=== PATIENT | female | born 2000 | race Hispanic/Latino ===

== ENCOUNTER 2020-05-17 14:02 | Outpatient (CLI) | payer BC, OTHER, SELFPAY ==
[2020-05-17 14:48] LABS: Basophils Percent Auto 0.3 % (0.2-1.2); Eosinophils Absolute Auto 0.1 K/mm3 (0-0.3); Eosinophils Percent Auto 0.7 % (0-4.4); Hematocrit 38.2 % (37.0-47.0); Hemoglobin 13.4 g/dL (12.0-15.0); Immature Granulocyte Absolute 0.02 K/mm3 (0.00-0.031); Immature Granulocyte Percent A 0.3 % (0-0.5); Lymphocytes Absolute Auto 1.39 K/mm3 (0.9-3.2); Lymphocytes Percent Auto 20.1 % (18.3-44.2); Mean Corpuscular HGB Conc 35.1 g/dl (32-36); Mean Corpuscular Hemoglobin 29.3 pg (26-34); Mean Corpuscular Volume 83.6 fl (80-100); Mean Platelet Volume 10.9 fl (7.4-10.4); Monocytes Absolute Auto 0.4 K/mm3 (0.1-0.6); Monocytes Percent Auto 5.9 % (2.6-8.5); Neutrophils Percent Auto 72.7 % (45.5-73.1); Platelet Count Result 214 k/mm3 (150-375); Red Blood Count 4.57 M/mm3 (4.2-5.4); Red Cell Distribution Width 12.3 % (11.5-14.5); White Blood Count 6.9 K/mm3 (4.5-10.0)
[2020-05-17 14:59] LABS: Alanine Aminotransferase 11 U/L (4-35); Albumin Level 4.2 g/dL (3.5-5.1); Alkaline Phosphatase 68 U/L (38-126); Anion Gap 9 mmol/L (8-16); Aspartate Amino Transferase 21 U/L (14-36); Bilirubin,Total 0.4 mg/dL (0.2-1.3); Blood Urea Nitrogen 7 mg/dL (7-17); Calcium 8.8 mg/dL (8.4-10.2); Carbon Dioxide 23 mmol/L (22-30); Chloride 103 mmol/L (98-107); Estimated Glomerular Filt Rate > 60; Glucose 109 mg/dL (65-105); Potassium 3.3 mmol/L (3.4-5.0); Sodium 135 mmol/L (137-145); Uric Acid 2.3 mg/dL (2.5-7.5)
[2020-05-17 15:40] LABS: HIV 1/2 Ab P24 Ag Result Negative (Negative)
[2020-05-17 16:14] LABS: Hemoglobin A1C 5.1 % (<5.7)
[2020-05-17 17:00] LABS: Hepatitis B Surface Antigen Negative (Negative); Rubella IgG Antibody 20.4 IU/ML
[2020-05-17 17:05] LABS: Hepatitis C Virus Antibody Negative (Negative)
[2020-05-19 10:38] LABS: Rapid Plasma Reagin Non-Reactive (NonReactive)
[2020-05-19 12:26] LABS: Lead, Blood <1 mcg/dL (<5)
[2020-05-24 15:45] LABS: Collection Sample Venous
== END 2020-05-17 14:03 | disposition home or self-care (01) ==
LOC: ANHLAB 14:05
PROVIDERS: Family Provider Family Medicine; PCP Family Medicine; Visit Provider Obstetrics & Gynecology
DX: Z34.90 Encounter for supervision of normal pregnancy, unspecified, unspecified trimester (principal); Z3A.00 Weeks of gestation of pregnancy not specified; Z51.81 Encounter for therapeutic drug level monitoring; Z79.899 Other long term (current) drug therapy
CPT/HCPCS: 36415; 80053; 83036; 83655; 84550; 85025; 86592; 86703; 86762; 86803; 86850; 86900; 86901; 87340; G0432

== ENCOUNTER 2020-08-31 17:04 | Observation (INO) | payer BC, OTHER, SELFPAY ==
--- NOTE | 2020-08-31 17:04 | OBADM ---
This patient, Karin Rajput, admitted to the OB room OB Post 116 for observation. Patient/family oriented to hospital policies and general routines including ID bracelet, bed and alarms, visiting hours, pain management, procedures, bathroom and other care routines, personal items, smoking policy, room service/diet, and visiting hours. Patient/Family are encouraged to report perceived risks to care and to ask questions if they do not understand what they are told or what they should do.
[2020-08-31 17:21] VITALS: BP 124/86; PULSE 109
[2020-08-31 17:31] VITALS: TEMP 36.8
[2020-08-31 17:35] VITALS: BMI 18.9
[2020-08-31 17:38] LABS: Add Urine Microscopic? YES; Appearance Urine Cloudy (Clear); Bacteria Urine Trace /hpf; Bilirubin Urine Negative (Negative); Blood Urine Negative (Negative); Color Urine Yellow (Yellow); Glucose Urine UA 1+ mg/dL (Negative); Ketones Urine Negative (Negative); Leukocyte Esterase Ur Negative LEU/UL (NEGATIVE); Mucus Urine Few /lpf; Nitrate Urine Negative (Negative); Protein Urine 1+ mg/dL (Negative); RBC Urine 0-2 /hpf (0-2); Squamous Epithelial Cell Urine Many /hpf (Few); WBC Urine 0-3 /hpf (0-3)
--- NOTE | 2020-09-03 07:39 | PM.OBTRLD ---
OB - Triage/Final Diagnosis Visit Information Comments/Additional reasons for admission: I have assessed the risk for this patient, Karin Rajput, and determined that she would benefit from observation care. Evaluation Laboratory results: Laboratory Tests 08/31/20 17:26 Urine Color Yellow Urine Appearance Cloudy H Urine pH 6.0 Ur Specific [place] 1.030 Urine Protein 1+ H Urine Glucose (UA) 1+ H Urine Ketones Negative Ur Blood (Man) Negative Urine Nitrate Negative Urine Bilirubin Negative Urine Urobilinogen 2.0 H Ur Leukocyte Esterase Negative Urine RBC 0-2 Urine WBC 0-3 Ur Squamous Epith Cells Many H Urine Bacteria Trace Urine Mucus Few H Final Diagnosis (1) False labor: Code(s): O47.9 - False labor, unspecified Status: Acute
== END 2020-08-31 18:13 | disposition home or self-care (01) ==
PROVIDERS: Admitting Provider Obstetrics & Gynecology; PCP Family Medicine; Visit Provider Obstetrics & Gynecology
DX: O47.02 False labor before 37 completed weeks of gestation, second trimester (principal); Z3A.27 27 weeks gestation of pregnancy
CPT/HCPCS: 81001; 87086; G0378; G0379

== ENCOUNTER 2020-09-06 12:35 | Outpatient (CLI) | payer BC, OTHER, SELFPAY ==
--- NOTE | 2020-09-06 | ECHO_ITS ---
Patient Info Name: Karin Rajput Age: 20 years : 2000 Gender: Female Ht: 68 in Wt: 127 lbs BSA: 1.65 m2 HR: 76 bpm BP: 118 / 96 mmHg Heart Rhythm: Sinus Rhythm Technical Quality: Good Exam Date: 09/06/2020 1:07 PM Exam Location: [facility]monary Patient Status: Outpatient Admit Date: 09/06/2020 Staff Ordering Physician: John Pollock MD Hand Developer: Casey Varghese RDCS, RT Attending Provider: John Pollock MD Referring Physician: Phill LANE; Exam Type: CA echo doppler color flow Study Info Indications Z13.6 - Encounter for screening for cardiovascular disorders Complete two-dimensional, color flow and Doppler transthoracic echocardiogram is performed. Strain analysis performed. Summary 1. Complete two-dimensional, color flow and Doppler transthoracic echocardiogram is performed. 2. Left ventricular systolic function is normal, estimated at 60-65%. 3. There is no increased left ventricular wall thickness. 4. The left ventricular diastolic function is normal. 5. There is no aortic valve regurgitation. 6. There is trace mitral valve regurgitation. 7. There is no tricuspid valve regurgitation. 8. Unable to estimate PA systolic pressure due to poor spectral resolution of tricuspid regurgitant jet velocity. 9. There is trace pulmonic regurgitation. Left Ventricle Left ventricular chamber dimension is normal. Left ventricular systolic function is normal, estimated at 60-65%. There is no increased left ventricular wall thickness. The left ventricular diastolic function is normal. Global longitudinal strain is normal at -19 %. Right Ventricle Right ventricular chamber dimension is normal. Right ventricular systolic function is normal. Left Atria Left atrial chamber dimension is normal. Right Atria Right atrial chamber dimension is normal. Aortic Valve The aortic valve is trileaflet. There is no aortic valve stenosis. There is no aortic valve regurgitation. Pulmonic Valve The pulmonic valve is normal. There is trace pulmonic regurgitation. Mitral Valve The mitral valve has normal leaflets. There is trace mitral valve regurgitation. Tricuspid Valve The tricuspid valve leaflets are normal. There is no tricuspid valve regurgitation. Unable to estimate PA systolic pressure due to poor spectral resolution of tricuspid regurgitant jet velocity. Pericardium/Pleural The pericardium appears normal. There is no pericardial effusion. Inferior Vena Cava Normal inferior vena cava with >50% collapse upon inspiration consistent with normal right atrial pressure, 5 mmHg. Aorta The aortic root size at the sinus of Valsalva is normal. Left Ventricular Outflow Tract Name Value Normal LVOT 2D LVOT Diameter 2.0 cm LVOT Doppler LVOT Peak Gradient 3 mmHg LVOT Mean Gradient 2 mmHg LVOT VTI 18 cm LVOT VTI/AV VTI Ratio 0.8 LVOT Stroke Volume 58 ml LVOT CO 4.9 l/min
== END 2020-09-06 12:36 | disposition home or self-care (01) ==
LOC: ANHCARD 12:35
PROVIDERS: PCP Family Medicine; Visit Provider Obstetrics & Gynecology Maternal & Fetal Medicine
DX: R06.02 Shortness of breath (principal)
CPT/HCPCS: 93306

== ENCOUNTER 2020-09-26 10:59 | Observation (INO) | payer BC, OTHER, SELFPAY ==
[2020-09-26 11:16] VITALS: BP 130/80; PULSE 102
[2020-09-26 11:30] VITALS: BP 107/71; PULSE 88
[2020-09-26 11:44] VITALS: TEMP 36
[2020-09-26 12:00] VITALS: BP 101/73; PULSE 86
[2020-09-26 12:02] LABS: Add Urine Microscopic? YES; Appearance Urine Cloudy (Clear); Bacteria Urine 2+ /hpf; Bilirubin Urine Negative (Negative); Blood Urine Negative (Negative); Color Urine Yellow (Yellow); Glucose Urine UA Negative (Negative); Ketones Urine 1+ mg/dL (Negative); Leukocyte Esterase Ur 1+ LEU/UL (Negative); Mucus Urine Rare /lpf; Nitrate Urine Negative (Negative); Protein Urine Negative (Negative); Specific Grav Ur 1.011 (1.001-1.035); Squamous Epithelial Cell Urine Many /hpf (Few); Urobilinogen Urine Negative mg/dL (<2.0)
[2020-09-26 12:15] VITALS: BP 99/67; PULSE 87
[2020-09-26 12:30] VITALS: BP 102/67; PULSE 86
[2020-09-26] MEDS: ONDANSETRON HCL ODT 4 MG TABLET PO (12:33)
[2020-09-26] MEDS: NITROFURANTOIN MONOHYD MACROCR 100 MG CAP PO (12:33)
[2020-09-26] MEDS: ACETAMINOPHEN 500 MG TABLET 1000 MG PO (12:52)
--- NOTE | 2020-10-17 11:06 | P.PNOB_ITS ---
OB - Triage/Final Diagnosis Visit Information Comments/Additional reasons for admission: I have assessed the risk for this patient, Karin Rajput, and determined that she would benefit from observation care. Evaluation Laboratory results: Laboratory Tests 09/26/20 11:46 Urine Color Yellow Urine Appearance Cloudy H Urine pH 7.0 Ur Specific [place] 1.011 Urine Protein Negative Urine Glucose (UA) Negative Urine Ketones 1+ H Ur Blood (Man) Negative Urine Nitrate Negative Urine Bilirubin Negative Urine Urobilinogen Negative Leukocyte Esterase Rfl 1+ H Urine RBC 3-5 H Urine WBC 4-6 H Ur Squamous Epith Cells Many H Urine Bacteria 2+ H Urine Mucus Rare Final Diagnosis (1) Nausea & vomiting: Code(s): R11.2 - Nausea with vomiting, unspecified Status: Acute
== END 2020-09-26 13:10 | disposition home or self-care (01) ==
PROVIDERS: Admitting Provider Obstetrics & Gynecology; PCP Family Medicine; Visit Provider Obstetrics & Gynecology
DX: O21.0 Mild hyperemesis gravidarum (principal); Z3A.31 31 weeks gestation of pregnancy
CPT/HCPCS: 81001; A9270; G0378; G0379

== ENCOUNTER 2020-10-18 15:07 | Observation (INO) | payer BC, OTHER, SELFPAY ==
[2020-10-18] VITALS (12 sets, daily range): BP systolic 118–137; BP diastolic 76–95; PULSE 82–95; RESP 14–18; TEMP 36.9
--- NOTE | ~2020-10-18 | US_ITS ---
EXAMINATION: US OB limited w BPP EXAM DATE: 10/18/2020 17:10 INDICATION: Decelerations. Biophysical, CHANCE requested. 3rd trimester. TECHNIQUE: Pelvic obstetrical transabdominal sonogram was performed by a technologist. There are mu ltiple grayscale and Doppler images available for interpretation. There are no earlier studies of th is gestation for comparison. FINDINGS: There is a single fetus identified in vertex presentation with a heart rate of 155 beats pe r minute. The placenta is located in the posterior position. There is no sonographic evidence of ret roplacental hemorrhage identified. AMNIOTIC FLUID INDEX Quadrant 1: 2.4 cm Quadrant 2: 1.6 cm Quadrant 3: 1.4 cm Quadrant 4: 3.2 cm Amniotic fluid index: 8.5 cm. (The 5th -- 95th percentile range is 8.1-24.8). BIOPHYSICAL PROFILE (performed by the technologist) breathing (30 sec sustained breathing in 30 minutes): 2 out of 2 movement (3 gross body movements in 30 minutes): 2 out of 2 tone (one episode of dahnjjg-dpqezuyvd-kjrnhxt limb movement): 2 out of 2 Amniotic fluid pocket (2 cm): 2 out of 2 Total score: 8 out of 8 IMPRESSION: 1. Single fetus with heart rate of 155 bpm. 2. Normal biophysical profile score of 8 out of 8. 3. CHANCE 8.5 cm, lower limits of normal. Reviewed, dictated and finalized at location A.
--- NOTE | ~2020-10-18 | US_ITS ---
EXAMINATION: US OB limited w BPP DATE: 10/19/2020 09:45 INDICATION: Preeclampsia, third trimester TECHNIQUE: Real-time pelvic ultrasound was performed. The interpreting radiologist was not present fo r the study. COMPARISON: 10/18/2020 FINDINGS: There is a single living fetus in vertex presentation. The placenta is posterior. heart rate is 154 beats per minute (bpm). The amniotic fluid index is 8.1 cm which is normal (normal range: 8.1 cm to 24.8 cm). Biophysical profile performed by the technologist: breathing (30 sec sustained breathing in 30 minutes): 2 out of 2 movement (3 gross body movements in 30 minutes): 2 out of 2 tone (one episode of zgnmbtt-frccmjmsu-nwxknzk limb movement): 2 out of 2 Amniotic fluid pocket (2 cm): 2 out of 2 Total score: 8 out of 8 IMPRESSION: 1. Single living fetus in vertex presentation. 2. Biophysical profile 8 out of 8. 3. Lower limits of normal amniotic fluid index. Reviewed, dictated and finalized at location B.
[2020-10-18 15:46] LABS: Basophils Percent Auto 0.3 % (0.2-1.2); Eosinophils Absolute Auto 0.1 K/mm3 (0-0.3); Eosinophils Percent Auto 0.7 % (0-4.4); Hematocrit 36.7 % (37.0-47.0); Hemoglobin 11.7 g/dL (12.0-15.0); Immature Granulocyte Absolute 0.06 K/mm3 (0.00-0.031); Immature Granulocyte Percent A 0.9 % (0-0.5); Lymphocytes Absolute Auto 1.53 K/mm3 (0.9-3.2); Lymphocytes Percent Auto 21.7 % (18.3-44.2); Mean Corpuscular HGB Conc 31.9 g/dl (32-36); Mean Corpuscular Hemoglobin 27.3 pg (26-34); Mean Corpuscular Volume 85.7 fl (80-100); Mean Platelet Volume 11.6 fl (7.4-10.4); Monocytes Absolute Auto 0.4 K/mm3 (0.1-0.6); Monocytes Percent Auto 6.3 % (2.6-8.5); Neutrophils Absolute Auto 4.9 K/mm3 (1.3-6.7); Neutrophils Percent Auto 70.1 % (45.5-73.1); Platelet Count Result 174 k/mm3 (150-375); Red Blood Count 4.28 M/mm3 (4.2-5.4); Red Cell Distribution Width 13.2 % (11.5-14.5)
[2020-10-18 16:03] LABS: Alanine Aminotransferase 22 U/L (4-35); Alkaline Phosphatase 98 U/L (38-126); Anion Gap 8 mmol/L (8-16); Aspartate Amino Transferase 28 U/L (14-36); Bilirubin,Total 0.3 mg/dL (0.2-1.3); Blood Urea Nitrogen 8 mg/dL (7-17); Calcium 9.1 mg/dL (8.4-10.2); Carbon Dioxide 22 mmol/L (22-30); Chloride 106 mmol/L (98-107); Estimated Glomerular Filt Rate > 60; Glucose 88 mg/dL (65-105); Potassium 3.7 mmol/L (3.4-5.0); Sodium 136 mmol/L (137-145); Uric Acid 2.8 mg/dL (2.5-7.5)
[2020-10-18 16:05] LABS: Add Urine Microscopic? YES; Appearance Urine Cloudy (Clear); Bacteria Urine 1+ /hpf; Bilirubin Urine Negative (Negative); Blood Urine Negative (Negative); Color Urine Straw (Yellow); Glucose Urine UA Negative (Negative); Ketones Urine Negative (Negative); Leukocyte Esterase Ur Trace LEU/UL (NEGATIVE); Nitrate Urine Negative (Negative); Protein Urine Negative (Negative); RBC Urine 0-2 /hpf (0-2); Squamous Epithelial Cell Urine Many /hpf (Few); Urobilinogen Urine Negative mg/dL (<2.0); WBC Urine 0-3 /hpf (0-3)
[2020-10-18 16:09] LABS: Total Protein Urine Random 12 mg/dL; Ur Ttl Prot Creatinine Ratio 0.71 mg/mg (0-0.20)
[2020-10-18 16:13] LABS: Specific Grav Ur 1.004 (1.001-1.035)
--- NOTE | 2020-10-18 18:18 | PC.NURSE ---
1814--Report to Leola Slaughter CNM re: CHANCE 8.5, ctxns, and pt. has GDM. Orders for accuchecks and for VE if pt. starts to feel like she may be laboring.
[2020-10-18 19:37] LABS: Glucose Point of Care 124 mg/dl (65-105)
[2020-10-19] VITALS (12 sets, daily range): BP systolic 112–119; BP diastolic 68–81; PULSE 69–98; RESP 16–18; TEMP 36.5–36.8; BMI 20.2
[2020-10-19 07:27] LABS: Glucose Point of Care 76 mg/dl (65-105)
--- NOTE | 2020-10-19 07:42 | PM.IMHP ---
H&P: HPI History of Present Illness Date/Time: 10/19/20 07:42 20y/o @ 34weeks 3 days sent over from the office yesterday for tachycardia and elevated blood pressure. Chief Complaint: Elevated blood pressure and tachycardia Review of Systems Review of Systems: All systems reviewed & are unremarkable except as noted in HPI and below PMFSH Past Medical History Medical History Anxiety Asthma Depression (normal spontaneous vaginal delivery) PIH ( induced hypertension) Raynaud disease Family History Family History Father Diabetes mellitus Social History Social History Smoking status: Never smoker Substance use: never Gender identity (if verbalized by the patient): Female Spiritual care concerns: No Meds Home Medications and Allergies Home Medications Medication Instructions Recorded Confirmed Type PNV cmb#95-ferrous fumarate-FA 1 tablet PO DAILY 05/12/19 10/18/20 History [] sertraline 50 mg PO DAILY 05/12/19 10/18/20 History Allergies Allergy/AdvReac Type Severity Reaction Status Date / Time amoxicillin Allergy Mild RASH Verified 08/16/20 11:24 Vital Signs Vital Signs - 24 hr 10/18/20 15:20 10/18/20 15:30 10/18/20 15:45 Temperature Pulse Rate 82 95 84 Respiratory Rate Blood Pressure 134/86 118/78 126/79 10/18/20 16:00 10/18/20 16:15 10/18/20 16:30 Temperature Pulse Rate 85 85 82 Respiratory Rate Blood Pressure 126/84 126/88 127/86 10/18/20 18:09 10/18/20 18:40 10/18/20 20:00 Temperature 98.4 F Pulse Rate 88 Respiratory Rate 18 14 Blood Pressure 137/95 H 10/18/20 20:21 10/18/20 22:00 10/18/20 22:07 Temperature 98.4 F Pulse Rate 89 94 Respiratory Rate 16 Blood Pressure 129/84 125/76 10/19/20 00:00 10/19/20 00:01 10/19/20 01:59 Temperature 97.9 F Pulse Rate 70 80 Respiratory Rate 18 16 Blood Pressure 118/77 115/75 10/19/20 02:00 10/19/20 03:59 10/19/20 04:00 Temperature 98.2 F Pulse Rate 86 Respiratory Rate 18 16 Blood Pressure 119/68 10/19/20 04:10 10/19/20 05:49 10/19/20 07:25 Temperature 98.3 F Pulse Rate 69 Respiratory Rate 16 Blood Pressure 118/68 10/19/20 07:27 Temperature Pulse Rate 90 Respiratory Rate Blood Pressure 117/79 Exam Narrative: Exam Narrative: VSS Abdomen soft and gravid with occasional contractions. FHR category 1 and tachycardia has resolved. Pt does state some increased mucous discharge (denies watery discharge) No edema DTR 2+ without clonus No h/a, v/d, or e/p. H&P: Results Labs Labs: Short CBC 10/18/20 Range/Units 15:40 WBC 7.0 (4.5-10.0) K/mm3 Hgb 11.7 L (12.0-15.0) g/dL Hct 36.7 L (37.0-47.0) % Plt Count 174 (150-375) k/mm3 BMP 10/18/20 15:40 Sodium 136 L Potassium 3.7 Chloride 106 Carbon Dioxide 22 BUN 8 Creatinine 0.40 L Glucose 88 Calcium 9.1 Liver Function 10/18/20 Range/Units 15:40 Total Bilirubin 0.3 (0.2-1.3) mg/dL AST 28 (14-36) U/L ALT 22 (4-35) U/L Alkaline Phosphatase 98 (38-126) U/L Albumin 4.0 (3.5-5.1) g/dL Urine 10/18/20 Range/Units 15:46 Urine Color Straw (Yellow) Urine Appearance Cloudy H (Clear) Urine pH 6.0 (5.0-9.0) Ur Specific [place] 1.004 (1.001-1.035) Urine Protein Negative (Negative) mg/dL Urine Glucose (UA) Negative (Negative) mg/dL Elevated pcr. Will continue with 24 hour urine. Assessment and Plan Additional Plan Continue with 24 hour urine Repeat u/s with CHANCE Rom plus to r/o rupture of membranes Continuous monitoring
[2020-10-19] MEDS: SERTRALINE HCL 50 MG TABLET PO (09:09)
[2020-10-19] MEDS: MULTIVIT/MIN/PREN/FOL AC/IRON TABLET 1 TAB PO (09:09)
[2020-10-19 10:14] LABS: Glucose Point of Care 107 mg/dl (65-105)
--- NOTE | 2020-10-19 14:11 | OBADM ---
This patient, Karin Rajput, admitted to the OB room OB Post 117 for observation. Admitted 10/18/2020 @ 1506. Patient/family oriented to hospital policies and general routines including ID bracelet, bed and alarms, visiting hours, pain management, procedures, bathroom and other care routines, personal items, smoking policy, room service/diet, and visiting hours. Patient/Family are encouraged to report perceived risks to care and to ask questions if they do not understand what they are told or what they should do.
[2020-10-19 14:21] LABS: Glucose Point of Care 102 mg/dl (65-105)
[2020-10-19 16:06] LABS: Collection Time Urine 24 HOURS
[2020-10-19 16:20] LABS: Total Volume 24 Hour Urine 1800 ml
[2020-10-19 16:22] LABS: Patient Weight 133 Lbs
[2020-10-19 16:40] LABS: Creatinine Clearance Urine 180.9 ml/min (75-125); Creatinine Urine 57.3 mg/dL; Total Protein Urine 24 Hr 198 mg/24hr (28-141); Total Protein Urine Random 11 mg/dL
--- NOTE | 2020-10-19 17:39 | PC.NURSE ---
Spoke with Kandis Slaughter CNM regarding patient status and lab results. Per Kandis patient is okay for discharge. Gave instructions to follow up with Kandis in the office this week for further observation and ultrasound.
== END 2020-10-19 17:35 | disposition home or self-care (01) ==
LOC: ANHOBOP 15:13 → ANHOBPP 15:15 → ANHOBOP 16:45 → ANHOBPP 16:45
PROVIDERS: Advanced Practice Midwife; Admitting Provider Obstetrics & Gynecology; PCP Family Medicine; Visit Provider Obstetrics & Gynecology
DX: O36.8330 Maternal care for abnormalities of the fetal heart rate or rhythm, third trimester, not applicable or unspecified (principal); Z3A.34 34 weeks gestation of pregnancy; R03.0 Elevated blood-pressure reading, without diagnosis of hypertension; R79.9 Abnormal finding of blood chemistry, unspecified
CPT/HCPCS: 36415; 76815; 76819; 80053; 81001; 81050; 82570; 82575; 82948; 84156; 84550; 85025; 87086; A9270; G0378; G0379

== ENCOUNTER 2020-10-21 14:53 | Observation (INO) | payer BC, OTHER, SELFPAY ==
[2020-10-21] VITALS (27 sets, daily range): BP systolic 108–128; BP diastolic 63–85; PULSE 57–125; TEMP 36.2; O2SAT 94–100; BMI 20.2
--- NOTE | ~2020-10-21 | US_ITS ---
EXAMINATION: US OB limited DATE: 10/22/2020 08:59 INDICATION: Contractions. Third trimester. TECHNIQUE: Real-time ultrasound of the pelvis was performed. COMPARISON: Ultrasound 10/19/2020 FINDINGS: There is a single fetus in vertex presentation. The placenta is left fundal. heart rate is 142 beats per minute (bpm). The amniotic fluid volume is subjectively normal. IMPRESSION: 1. Single living fetus in vertex presentation. 2. Normal placenta. Reviewed, dictated and finalized at location A.
--- NOTE | 2020-10-21 16:10 | OBADM ---
This patient, Karin Rajput, admitted to the OB room 116 at 1453 due to tachycardia and non-reactive NST at MD office. Pt kept for observation due to contractions. Patient/family oriented to hospital policies and general routines including ID bracelet, bed and alarms, visiting hours, pain management, procedures, bathroom and other care routines, personal items, smoking policy, room service/diet, and visiting hours. Patient/Family are encouraged to report perceived risks to care and to ask questions if they do not understand what they are told or what they should do.
[2020-10-21] MEDS: TERBUTALINE SULFATE 1 MG/ML VIAL 0.25 MG SUB-Q (16:45)
[2020-10-21] MEDS: ONDANSETRON HCL ODT 4 MG TABLET PO (17:44)
--- NOTE | 2020-10-21 19:19 | PC.NURSE ---
Dr. Harris notifed of pt having contractions and irritability. Order received for Procardia 30mg XL x1, LR bolus x1 and Zofran 4mg IV prn as needed. No other order at this time.
[2020-10-21] MEDS: NIFEdipine 30 MG TAB.ER.24 PO ×2 (19:32→21:13)
[2020-10-21] MEDS: LACTATED RINGERS 1,000 ML 999 ML IV CONT (19:33)
[2020-10-21] MEDS: ONDANSETRON INJ 4 MG/2 ML VIAL IV PUSH (19:37)
[2020-10-21 20:03] LABS: Glucose Point of Care 112 mg/dl (65-105)
[2020-10-21 20:30] LABS: Add Urine Microscopic? YES; Amorphous Sediment Urine Few; Appearance Urine Cloudy (Clear); Bacteria Urine 3+ /hpf; Bilirubin Urine Negative (Negative); Blood Urine Negative (Negative); Color Urine Straw (Yellow); Glucose Urine UA Negative (Negative); Ketones Urine 1+ mg/dL (Negative); Leukocyte Esterase Ur Negative LEU/UL (Negative); Nitrate Urine Negative (Negative); Protein Urine Negative (Negative); RBC Urine 0-2 /hpf (0-2); Squamous Epithelial Cell Urine Many /hpf (Few); Urobilinogen Urine Negative mg/dL (<2.0); WBC Urine 0-3 /hpf
[2020-10-21 20:31] LABS: Specific Grav Ur 1.003 (1.001-1.035)
--- NOTE | 2020-10-21 21:08 | PC.NURSE ---
Dr. Harris notified of pt having contractions and continued irratibility. Order received to recheck pt cervix, continue LR at 150ml/hr and give addition 30mg XL Procardia. No further orders.
[2020-10-21] MEDS: LACTATED RINGERS 1,000 ML 150 ML IV CONT (21:13)
--- NOTE | 2020-10-21 22:15 | PC.NURSE ---
Dr. Harris notified of pt cervical exam and contractions. Pt reporting pain in her lower back of 8 and contractions a 6. Order received for pt to receive Celestone, 5mg Ambien, 10 mg IM morphine and continue IV fluids overnight. Pt to have ultrasound of placenta in AM. No further orders at this time.
[2020-10-21] MEDS: BETAMETHASONE SOD PHOS/ACETATE 30 MG/5 ML VIAL 12 MG IM (22:42)
[2020-10-21] MEDS: ZOLPIDEM TARTRATE (*CRX) 5 MG TABLET PO (22:45)
[2020-10-21] MEDS: MORPHINE SULFATE INJ (*CRX) 10 MG/ML AMP IM (22:46)
[2020-10-22] VITALS (98 sets, daily range): BP systolic 82–116; BP diastolic 43–77; PULSE 50–127; O2SAT 95–100
[2020-10-22] MEDS: LACTATED RINGERS 1,000 ML 150 ML IV CONT (03:51)
--- NOTE | 2020-10-22 07:52 | PM.IMHP ---
H&P: HPI History of Present Illness Date/Time: 10/22/20 07:52 This patient is a 20-year-old multiparous female at 34 weeks and 4 days gestation who presented with contractions. The contractions were painful, repetitive. They were associated with increasing pelvic pressure and low back Pain. She denies any loss of fluid, vaginal bleeding. she denies any chest pain shortness of breath. She denies any nausea, vomiting, fever, chills. She denies any urinary symptoms. She denies any respiratory symptoms. Chief Complaint: Contractions Review of Systems Constitutional: Constitutional: Reports no additional constitutional complaints, Denies fatigue, Denies headache(s), Denies lethargy and Denies weakness Eyes: Eyes: Reports no additional eye complaints, Denies blurry vision and Denies photophobia ENT: Reports as per HPI, Denies headache(s) and Denies neck pain Cardiovascular: Cardiovascular: Denies chest pain, Denies diaphoresis, Denies leg edema, Denies palpitations and Denies dyspnea Respiratory: Respiratory: Denies hemoptysis, Denies dyspnea and Denies wheezing Gastrointestinal: Gastrointestinal: Denies abdominal pain, Denies melena, Denies bloating, Denies hematochezia, Denies nausea and Denies vomiting Genitourinary: Genitourinary: Reports no additional female genitourinary complaints Musculoskeletal: Musculoskeletal: Denies joint swelling, Denies neck pain, Denies numbness and Denies stiffness Neurologic: Denies Abnormal speech present, Denies confusion, Denies headache(s), Denies numbness and Denies weakness Psychiatric: Psychiatric: Denies anxiety, Denies confusion, Denies depression, Denies homicidal ideation and Denies suicidal ideation Endocrine: Endocrine: Denies fatigue and Denies palpitations Allergic/Immunologic: Allergic/Immunologic: Denies wheezing PMFSH Past Medical History Medical History Anxiety Asthma Depression (normal spontaneous vaginal delivery) PIH ( induced hypertension) Raynaud disease Family History Family History Father Diabetes mellitus Social History Social History Smoking status: Never smoker Substance use: never Gender identity (if verbalized by the patient): Female Spiritual care concerns: No Meds Home Medications and Allergies Home Medications Medication Instructions Recorded Confirmed Type PNV cmb#95-ferrous fumarate-FA 1 tablet PO DAILY 05/12/19 10/21/20 History [] sertraline 50 mg PO DAILY 05/12/19 10/21/20 History Allergies Allergy/AdvReac Type Severity Reaction Status Date / Time amoxicillin Allergy Mild RASH Verified 08/16/20 11:24 Vital Signs Vital Signs - 24 hr 10/21/20 16:10 10/21/20 16:44 10/21/20 17:00 Temperature 97.1 F L Pulse Rate 88 125 H Blood Pressure 108/63 128/85 Pulse Oximetry 10/21/20 17:45 10/21/20 17:51 10/21/20 18:00 Temperature 97.1 F L Pulse Rate 113 H 105 H Blood Pressure 121/84 112/69 Pulse Oximetry 10/21/20 19:00 10/21/20 21:05 10/21/20 22:00 Temperature Pulse Rate 98 89 82 Blood Pressure 113/79 113/78 110/69 Pulse Oximetry 10/21/20 22:44 10/21/20 22:49 10/21/20 22:54 Temperature Pulse Rate 86 Blood Pressure 112/79 Pulse Oximetry 99 100 98 10/21/20 22:59 10/21/20 23:00 10/21/20 23:04 Temperature Pulse Rate 97 Blood Pressure 116/84 Pulse Oximetry 98 99 10/21/20 23:09 10/21/20 23:14 10/21/20 23:19 Temperature Pulse Rate Blood Pressure Pulse Oximetry 94 97 96 10/21/20 23:24 10/21/20 23:29 10/21/20 23:30 Temperature Pulse Rate 88 Blood Pressure 117/77 Pulse Oximetry 95 95 10/21/20 23:34 10/21/20 23:39 10/21/20 23:44 Temperature Pulse Rate Blood Pressure Pulse Oximetry 95 95 96 10/21/20 23:49 10/21/20 23:54
== END 2020-10-22 08:45 | disposition home or self-care (01) ==
PROVIDERS: Admitting Provider Obstetrics & Gynecology; PCP Family Medicine; Visit Provider Obstetrics & Gynecology
DX: O47.03 False labor before 37 completed weeks of gestation, third trimester (principal); Z3A.34 34 weeks gestation of pregnancy
CPT/HCPCS: 76815; 81001; 82948; 96361; 96372; 96374; A9270; G0378; G0379; J0702; J2270; J2405; J3105; J7120

== ENCOUNTER 2020-10-23 09:06 | Outpatient (CLI) | payer BC, OTHER, SELFPAY ==
[2020-10-23] MEDS: BETAMETHASONE SOD PHOS/ACETATE 30 MG/5 ML VIAL 12 MG IM (09:31)
== END 2020-10-23 09:35 | disposition home or self-care (01) ==
LOC: ANHOBOP 09:17 → ANHLDR 09:18
PROVIDERS: PCP Family Medicine; Visit Provider Obstetrics & Gynecology
DX: Z34.90 Encounter for supervision of normal pregnancy, unspecified, unspecified trimester (principal); Z3A.00 Weeks of gestation of pregnancy not specified
CPT/HCPCS: 96372; 99199; J0702

== ENCOUNTER 2020-10-24 18:02 | Observation (INO) | payer BC, OTHER, SELFPAY ==
[2020-10-24 18:19] VITALS: BP 119/82; PULSE 88
[2020-10-24 18:30] VITALS: BP 114/72; PULSE 83
[2020-10-24 18:45] VITALS: BMI 20.1
--- NOTE | 2020-10-24 18:45 | OBADM ---
This patient, Karin Rajput, admitted to the OB room OB Post 117 for observation. Patient/family oriented to hospital policies and general routines including ID bracelet, bed and alarms, visiting hours, pain management, procedures, bathroom and other care routines, personal items, smoking policy, room service/diet, and visiting hours. Patient/Family are encouraged to report perceived risks to care and to ask questions if they do not understand what they are told or what they should do.
[2020-10-24 19:00] VITALS: BP 110/71; PULSE 73
[2020-10-24 20:47] LABS: Glucose Point of Care 98 mg/dl (65-105)
--- NOTE | 2020-11-02 07:07 | PM.OBTRLD ---
OB - Triage/Final Diagnosis Visit Information Comments/Additional reasons for admission: I have assessed the risk for this patient, Krain Rajput, and determined that she would benefit from observation care. Evaluation Laboratory results: Laboratory Tests 10/24/20 20:42 POC Capillary Glucose 98 Final Diagnosis (1) Decreased movement: Code(s): O36.8190 - Decreased movements, unspecified trimester, not applicable or unspecified Status: Acute
== END 2020-10-24 23:08 | disposition home or self-care (01) ==
PROVIDERS: Admitting Provider Obstetrics & Gynecology; PCP Family Medicine; Visit Provider Obstetrics & Gynecology
DX: O36.8130 Decreased fetal movements, third trimester, not applicable or unspecified (principal); Z3A.35 35 weeks gestation of pregnancy
CPT/HCPCS: 82948; G0378; G0379

== ENCOUNTER 2020-11-02 15:06 | Outpatient (RCR) | payer BC, OTHER, SELFPAY ==
[2020-10-25 11:29] VITALS: BP 114/79; PULSE 78
[2020-11-02 15:47] VITALS: BP 111/74; PULSE 102
== END 2020-11-16 07:54 | disposition home or self-care (01) ==
LOC: ANHOBOP 15:06
PROVIDERS: PCP Family Medicine; Visit Provider Obstetrics & Gynecology
DX: O36.8330 Maternal care for abnormalities of the fetal heart rate or rhythm, third trimester, not applicable or unspecified (principal); Z3A.35 35 weeks gestation of pregnancy; Z3A.36 36 weeks gestation of pregnancy
CPT/HCPCS: 59025

== ENCOUNTER 2020-11-15 05:31 | Inpatient (IN) | payer BC, OTHER, SELFPAY ==
[2020-11-15] VITALS (106 sets, daily range): BP systolic 94–135; BP diastolic 50–121; PULSE 74–156; RESP 16; TEMP 36.2–37.3; O2SAT 99–100; BMI 20.7
--- NOTE | 2020-11-15 05:31 | LDADM ---
This patient, Karin Rajput, was admitted to Labor/Delivery/Recovery 105 on 11/15/20 at 05:31. Plans for labor, pain management and were discussed with patient. Patient/family oriented to hospital policies and general routines including ID bracelet, bed and alarms, visiting hours, pain management, procedures, bathroom and other care routines, personal items, smoking policy, room service/diet and guest tray routines, infant security routines, and visiting hours. Patient/Family are encouraged to report perceived risks to care and to ask questions if they do not understand what they are told or what they should do. See OBIX for further documentation.
[2020-11-15 10:09] LABS: Add Urine Microscopic? YES; Appearance Urine Cloudy (Clear); Bacteria Urine 1+ /hpf; Bilirubin Urine Negative (Negative); Blood Urine 1+ (Negative); Color Urine Yellow (Yellow); Glucose Urine UA Negative (Negative); Ketones Urine Negative (Negative); Leukocyte Esterase Ur 3+ LEU/UL (NEGATIVE); Mucus Urine Rare /lpf; Nitrate Urine Negative (Negative); Protein Urine Negative (Negative); Specific Grav Ur 1.014 (1.001-1.035); Squamous Epithelial Cell Urine Many /hpf (Few); Urobilinogen Urine Negative mg/dL (<2.0)
[2020-11-15 10:33] LABS: Basophils Percent Auto 0.2 % (0.2-1.2); Eosinophils Absolute Auto 0.1 K/mm3 (0-0.3); Eosinophils Percent Auto 0.7 % (0-4.4); Hematocrit 36.9 % (37.0-47.0); Hemoglobin 11.7 g/dL (12.0-15.0); Immature Granulocyte Absolute 0.07 K/mm3 (0.00-0.031); Immature Granulocyte Percent A 0.9 % (0-0.5); Lymphocytes Absolute Auto 1.55 K/mm3 (0.9-3.2); Lymphocytes Percent Auto 19.3 % (18.3-44.2); Mean Corpuscular HGB Conc 31.7 g/dl (32-36); Mean Corpuscular Hemoglobin 26.4 pg (26-34); Mean Corpuscular Volume 83.3 fl (80-100); Mean Platelet Volume 12.7 fl (7.4-10.4); Monocytes Absolute Auto 0.4 K/mm3 (0.1-0.6); Monocytes Percent Auto 5.1 % (2.6-8.5); Neutrophils Absolute Auto 5.9 K/mm3 (1.3-6.7); Neutrophils Percent Auto 73.8 % (45.5-73.1); Platelet Count Result 150 k/mm3 (150-375); Red Blood Count 4.43 M/mm3 (4.2-5.4); Red Cell Distribution Width 14.2 % (11.5-14.5)
[2020-11-15 10:51] LABS: Glucose Point of Care 80 mg/dl (65-105)
--- NOTE | 2020-11-15 12:42 | WPDOBADMIT ---
Obstetrics - Admit Note Admission Note: Pt presented for contractions. Minimal cervical change however there have been variable decelerations. Decision was made to admit and augment. Upon cervical exam more change was noted and pt is now 3cm/80/-1. AROM performed. Will plan to start pitocin. Epidural as desired. record reviewed. No pertinent additions to the history and/or any subsequent changes in the physical findings that are not consistent with the expected course of the were found. Additions to the history and/or subsequent changes in the physical findings follow. None.
[2020-11-15] MEDS: ACETAMINOPHEN 500 MG TABLET 1000 MG PO (12:53)
[2020-11-15] MEDS: LACTATED RINGERS 1,000 ML 125 ML IV CONT (13:46)
[2020-11-15] MEDS: OXYTOCIN 30 UNITS/NS 500 ML 30 UNITS/500 ML BAG IV CONT (13:47)
[2020-11-15 13:56] LABS: Amphetamine Screen Urine Negative (Negative); Barbiturate Screen Urine Negative (Negative); Benzodiazepines Screen Urine Negative (Negative); Cannabinoid Screen Urine Negative (Negative); Cocaine Screen Urine Negative (Negative); Methadone Screen Urine Negative (Negative); Opiate Screen Urine Negative (Negative); Phencyclidine Screen Urine Negative (Negative)
[2020-11-15 14:46] LABS: Glucose Point of Care 70 mg/dl (65-105)
[2020-11-15] MEDS: fentaNYL CITRATE INJ (*CRX) 100 MCG/2 ML VIAL 50 MCG IV PUSH (16:29)
[2020-11-15 17:49] LABS: Glucose Point of Care 62 mg/dl (65-105)
--- NOTE | 2020-11-15 18:03 | WPDANESEPP ---
Anes - Eval Pre Procedure Procedure: labor epidural Date/Time: 11/15/20 18:03 Surgeon: Karen Preop Diagnosis: abd pain with contractions Pre Op Diagnosis: Contractions Patient Data Age: 20 Gender: F Height: 1.73 m Weight: 62 kg Last Vital Signs Temp 98.8 F 11/15/20 16:31 Pulse 107 H 11/15/20 18:00 BP 123/75 11/15/20 18:00 Pulse Ox 100 11/15/20 18:02 Allergies Allergy/AdvReac Type Severity Reaction Status Date / Time amoxicillin Allergy Mild RASH Verified 08/16/20 11:24 Home Medications Medication Instructions Recorded Confirmed Type PNV cmb#95-ferrous fumarate-FA 1 tablet PO DAILY 05/12/19 11/15/20 History [] sertraline 50 mg PO DAILY 05/12/19 11/15/20 History metformin 500 mg PO DAILY 11/15/20 11/15/20 History Laboratory Tests 11/15/20 11/15/20 11/15/20 09:36 10:20 10:20 WBC 8.0 K/mm3 K/mm3 (4.5-10.0) RBC 4.43 M/mm3 M/mm3 (4.2-5.4) Hgb 11.7 g/dL L g/dL (12.0-15.0) Hct 36.9 % L % (37.0-47.0) MCV 83.3 fl fl (80-100) MCH 26.4 pg pg (26-34) MCHC 31.7 g/dl L g/dl (32-36) RDW 14.2 % % (11.5-14.5) Plt Count 150 k/mm3 k/mm3 (150-375) MPV 12.7 fl H fl (7.4-10.4) Immature Gran % (Auto) 0.9 % H % (0-0.5) Neut % (Auto) 73.8 % H % (45.5-73.1) Lymph % (Auto) 19.3 % % (18.3-44.2) [place] % (Auto) 5.1 % % (2.6-8.5) Eos % (Auto) 0.7 % % (0-4.4) Baso % (Auto) 0.2 % % (0.2-1.2) Lymph # (Auto) 1.55 K/mm3 K/mm3 (0.9-3.2) [place] # (Auto) 0.4 K/mm3 K/mm3 (0.1-0.6) Eos # (Auto) 0.1 K/mm3 K/mm3 (0-0.3) Baso # (Auto) 0.0 K/mm3 K/mm3 (0.0-0.1) Abs Immat Gran (auto) 0.07 K/mm3 H K/mm3 (0.00-0.031) Absolute Neuts (auto) 5.9 K/mm3 K/mm3 (1.3-6.7) Absolute Nucleated RBC 0.0 K/mm3 K/mm3 (0.0-0.012) Nucleated RBC % 0.0 % % (0.0-0.2) POC Capillary Glucose Urine Color Yellow (Yellow) Urine Appearance Cloudy H (Clear) Urine pH 6.0 (5.0-9.0) Ur Specific [place] 1.014 (1.001-1.035) Urine Protein Negative mg/dL mg/dL (Negative) Urine Glucose (UA) Negative mg/dL mg/dL (Negative) Urine Ketones Negative mg/dL mg/dL (Negative) Ur Blood (Man) 1+ H (Negative) Urine Nitrate Negative (Negative) Urine Bilirubin Negative (Negative) Urine Urobilinogen Negative mg/dL mg/dL (<2.0) Ur Leukocyte Esterase 3+ BENIGNO/UL H BENIGNO/UL (NEGATIVE) Urine RBC 3-5 /hpf H /hpf (0-2) Urine WBC 10-15 /hpf H /hpf (0-3) Ur Squamous Epith Cells Many /hpf H /hpf (Few) Urine Bacteria 1+ /hpf H /hpf Urine Mucus Rare /lpf /lpf Urine Opiates Screen Urine Methadone Screen Ur Barbiturates Screen Ur Phencyclidine Scrn Ur Amphetamine Screen U Benzodiazepines Scrn Urine Cocaine Screen U Cannabinoids Screen RPR Pending Blood Type Antibody Screen 11/15/20 11/15/20 11/15/20 10:20 10:30 12:50 WBC RBC Hgb Hct MCV MCH MCHC RDW Plt Count MPV Immature Gran % (Auto) Neut % (Auto) Lymph % (Auto) [place] % (Auto) Eos % (Auto) Baso % (Auto) Lymph # (Auto) [place] # (Auto) Eos # (Auto) Baso # (Auto) Abs Immat Gran (auto) Absolute Neuts (auto) Absolute Nucleated RBC Nucleated RBC % POC Capillary Glucose 80 mg/dl mg/dl (65-105) Urine Color
--- NOTE | 2020-11-15 19:41 | PM.OBPRVD ---
OB - Delivery Note Procedure Delivery date: 11/15/20 Intrapartal events: None Induction method: none Delivery augmentation: rupture of membranes Delivery monitor: external FHT and external uterine Route of delivery: Episiotomy description: None Laceration Description: None Specimen: Yes Quantitative Blood Loss (ml): 102 Anesthesia type: Epidural Narrative: Mother and baby in stable condition. Cord gasses collected and handed off to staff. Baby Date of : 11/15/20 Time of : 19:29 Weeks of gestation at delivery: 38 Weight (pounds): 6 Weight (ounces): 11 presentation: vertex position: Left Occiput Anterior Placenta delivery description: Spontaneous cord vessel description: 3 Vessels and Delayed Cord Clamping score one minute: 8 score five minutes: 9
[2020-11-15] MEDS: OXYTOCIN 30 UNITS/NS 500 ML 30 UNITS/500 ML BAG 125 UNITS IV CONT (20:06)
[2020-11-16 04:30] VITALS: BP 113/80; PULSE 72; RESP 18; TEMP 36.2; O2SAT 98
[2020-11-16 05:13] LABS: Glucose Point of Care 93 mg/dl (65-105)
[2020-11-16 05:14] LABS: Hematocrit 35.7 % (37.0-47.0); Hemoglobin 11.1 g/dL (12.0-15.0)
[2020-11-16] MEDS: ACETAMINOPHEN 325 MG TABLET 650 MG PO ×3 (05:25→16:07)
--- NOTE | 2020-11-16 06:29 | PM.OBPNVD ---
OB - PN: Subj Subjective Date/time seen: 11/16/20 06:29 Patient comments: no complaints and pain well controlled baby status: doing well Narrative: Eating, ambulating, voiding. may want DC this evening. OB - PN: Obj Data Labs CBC & Chem 7: 11/16/20 04:29 Labs: Laboratory Results - last 24 hr 11/15/20 11/15/20 11/15/20 09:36 10:20 10:20 WBC 8.0 RBC 4.43 Hgb 11.7 L Hct 36.9 L MCV 83.3 MCH 26.4 MCHC 31.7 L RDW 14.2 Plt Count 150 MPV 12.7 H Immature Gran % (Auto) 0.9 H Neut % (Auto) 73.8 H Lymph % (Auto) 19.3 Hudspeth % (Auto) 5.1 Eos % (Auto) 0.7 Baso % (Auto) 0.2 Lymph # (Auto) 1.55 Hudspeth # (Auto) 0.4 Eos # (Auto) 0.1 Baso # (Auto) 0.0 Abs Immat Gran (auto) 0.07 H Absolute Neuts (auto) 5.9 Absolute Nucleated RBC 0.0 Nucleated RBC % 0.0 POC Capillary Glucose Urine Color Yellow Urine Appearance Cloudy H Urine pH 6.0 Ur Specific Thompson 1.014 Urine Protein Negative Urine Glucose (UA) Negative Urine Ketones Negative Ur Blood (Man) 1+ H Urine Nitrate Negative Urine Bilirubin Negative Urine Urobilinogen Negative Ur Leukocyte Esterase 3+ H Urine RBC 3-5 H Urine WBC 10-15 H Ur Squamous Epith Cells Many H Urine Bacteria 1+ H Urine Mucus Rare Urine Opiates Screen Urine Methadone Screen Ur Barbiturates Screen Ur Phencyclidine Scrn Ur Amphetamine Screen U Benzodiazepines Scrn Urine Cocaine Screen U Cannabinoids Screen Blood Type O Positive Antibody Screen Negative 11/15/20 11/15/20 11/15/20 10:30 12:50 14:34 WBC RBC Hgb Hct MCV MCH MCHC RDW Plt Count MPV Immature Gran % (Auto) Neut % (Auto) Lymph % (Auto) Hudspeth % (Auto) Eos % (Auto) Baso % (Auto) Lymph # (Auto) Hudspeth # (Auto) Eos # (Auto) Baso # (Auto) Abs Immat Gran (auto) Absolute Neuts (auto) Absolute Nucleated RBC Nucleated RBC % POC Capillary Glucose 80 70 Urine Color Urine Appearance Urine pH Ur Specific Thompson Urine Protein Urine Glucose (UA) Urine Ketones Ur Blood (Man) Urine Nitrate Urine Bilirubin Urine Urobilinogen Ur Leukocyte Esterase Urine RBC Urine WBC Ur Squamous Epith Cells Urine Bacteria Urine Mucus Urine Opiates Screen Negative Urine Methadone Screen Negative Ur Barbiturates Screen Negative Ur Phencyclidine Scrn Negative Ur Amphetamine Screen Negative U Benzodiazepines Scrn Negative Urine Cocaine Screen Negative U Cannabinoids Screen Negative Blood Type Antibody Screen 11/15/20 11/16/20 11/16/20 17:46 04:29 04:41 WBC RBC Hgb 11.1 L Hct 35.7 L MCV MCH MCHC RDW Plt Count MPV Immature Gran % (Auto) Neut % (Auto) Lymph % (Auto) Hudspeth % (Auto) Eos % (Auto) Baso % (Auto) Lymph # (Auto) Hudspeth # (Auto) Eos # (Auto) Baso # (Auto) Abs Immat Gran (auto) Absolute Neuts (auto) Absolute Nucleated RBC Nucleated RBC % POC Capillary Glucose 62 L 93 Urine Color Urine Appearance Urine pH Ur Specific Thompson Urine Protein Urine Glucose (UA) Urine Ketones Ur Blood (Man) Urine Nitrate Urine Bilirubin Urine Urobilinogen Ur Leukocyte Esterase Urine RBC Urine WBC Ur Squamous Epith Cells Urine Bacteria Urine Mucus Urine Opiates Screen Urine Methadone Screen Ur Barbiturates Screen Ur Phencyclidine Scrn Ur Amphetamine Screen U Benzodiazepines Scrn Urine Cocaine Screen U Cannabinoids Screen Blood Type Antibody Screen OB - PN A/P Plan day: 1 Plan: routine care Time Spent With Patient Time: Total time spent is greater than 50% in coordination of care (as documented) at patient's floor/unit
[2020-11-16 07:40] VITALS: BP 125/83; PULSE 83; RESP 18; TEMP 36.1; O2SAT 100
--- NOTE | 2020-11-16 07:42 | WPDANLDPN2 ---
Anes-Prog Note L&D Date/Time: 11/16/20 07:42 Comfortable throughout: labor and delivery Neuraxial method: epidural Epidural/Spinal procedure site: clean & non-tender Neuro status: Neuro function grossly intact. Cardiovascular status: normal Respiratory status: normal Airway patency: baseline Mental status: baseline Post-Op hydration status: normal Vital Signs: Last Vital Signs Temp 36.2 C L 11/16/20 04:30 Pulse 72 11/16/20 04:30 Resp 18 11/16/20 04:30 BP 113/80 11/16/20 04:30 Pulse Ox 98 11/16/20 04:30 Pain score (VAS): 2 I/O: Intake & Output 11/15/20 11/15/20 11/16/20 15:59 23:59 07:59 Intake Total 1500 Output Total 222 Balance 1278 Post-procedural complaints: none Patient feedback: Patient satisfied with anesthetic care.
[2020-11-16 10:05] LABS: Rapid Plasma Reagin Non-Reactive (NonReactive)
[2020-11-16] MEDS: IBUPROFEN 600 MG TABLET PO ×2 (10:19→16:07)
--- NOTE | 2020-11-16 11:40 | PC.NURSE ---
Consult with pt., Mother reports infant is sleepy and has difficulties latching to right breast. Mother was given a nipple shield for latching, reporting latch is difficult with shield and prefers not to use it. Infant has had a few eager feedings since . Infant is able to freely thrust tongue past gum ridge and flange both lips. Skin is intact on both nipples, no redness and bruising noted. Right nipple has a small profile compared to left. Reviewed feeding cues, frequencies, duration of feedings, feeding elimination flow sheet, and signs of adequate intake. Demonstrated stimulation techniques to wake infant for feeding. Assisted with infant to breast. Reviewed positioning/alignment in cross cradle, holding breast in ?U? hold and guided asymmetrical latch on. Discussed rational for each. Several attempts before able to latch correctly. Infant nursed eagerly, for a short burst and released latch with gagging and spitting up brownish tinted mucus. Infant spit up large amounts, 2 times within 5 minutes. Mother continue to make eager attempts to latch . gaggy with continued attempts and short bursts. Discussed feeding plan to initiate supplementation after each feeding until infant is maintaining latch and effectively feeding for at least 10-15 minutes each attempt. Mother will continue to attempt fo 10 minutes then supplement 15-20 mls and pump. Nipple care reviewed of lanolin after feedings, warm compresses as needed. Instructed mother to call out for RN assistance if she is unable to latch for feeding or she has discomfort with nursing.
[2020-11-16 11:50] VITALS: BP 112/80; PULSE 101; RESP 18; TEMP 36.6; O2SAT 100
[2020-11-16 16:00] VITALS: BP 103/71; PULSE 100; RESP 18; TEMP 36.5
[2020-11-17 10:01] VITALS: BP 117/77; PULSE 94; RESP 16; TEMP 37.1; O2SAT 100
--- NOTE | 2020-12-09 08:24 | PM.OBDSVD ---
DS: Admitting Diagnosis Admitting Diagnosis Labor OB - DS: Summary OB Procedures : None OB Procedures Intrapartum: Spontaneous Vag Delivery OB Procedures: : None Time Spent with Patient Time attestation: Total time spent providing and/or coordinating discharge services: DS: Data Data Completed and Pending Completed studies during hospitalization: Pending at discharge 11/15/20 21:11 Surgical [PTH] Routine Discharge Plan Discharge Attending physician on discharge: Dianna Jones Consulting providers: Kandis Slaughter Discharging Clinician: Dianna Jones Patient Disposition: Home, Self-Care Activity: may shower and pelvic rest Diet: as tolerated Discharge Instructions: Education: Mom and Baby Guide Given to: Mother Follow-Up: Call your delivering provider's office for an appointment to be seen in: call office for appointment in 4 weeks with Kandis Mom and baby should come to the [facility] for the follow-up appointment. Appointment Date/Time: November 17, 2020 at 10:00 am What to expect at your follow-up visit: Blood Pressure Check Physical Assessment Call [phone] if you are unable to keep your appointment time. BREAST CARE: * Wear a snug supportive bra. * For engorgement discomfort: Breast Feeding: * Apply warm moist washcloths * Express milk as needed to relieve engorgement * Wear loose clothing * For sore nipples: * Identify correct latch-on * Apply warm moist washcloths before and after nursing * Air dry nipples after nursing * May apply Lansinoh cream to nipples EPISIOTOMY/PERINEAL CARE: * Until bleeding stops, use your luann bottle after urinating * Change your pad frequently throughout the day * You may take sitz baths several times a day (fill your bathtub with warm water and soak for 20 minutes.) Do NOT bathe in the water * No tub baths until seen by your physician - You may shower ACTIVITY: * Rest as much as possible. * Do not exercise or lift anything heavier than your baby (such as laundry or other children.) * Avoid stairs or driving as much as possible. * Do not put anything into the vagina. No douching, tampons, or sexual activity until seen by physician. NOTIFY PHYSICIAN IF YOU HAVE ANY QUESTIONS OR IF ANY OF THE FOLLOWING SYMPTOMS OCCUR: * If your vaginal bleeding becomes foul smelling. * If your vaginal bleeding becomes more heavy than a period or if your bleeding changes from pink to bright red. However, you may pass an occasional walnut-sized clot once or twice for the first week . * If you experience a sharp, shooting pain in you calves. * If you discover a hard, reddened area on your breast or if you experience flu-like symptoms. DIET: * Eat regular, well-balanced meals. * Drink plenty of fluids daily. If , drink to thirst. Patient Instructions: Antibiotic Form Stand Alone Forms: General Discharge Information Follow-up/Referrals: Dianna Jones MD [Physician] - 4 Weeks Discharge Medications: Continued sertraline 25 mg Tablet 50 mg PO DAILY RF: 0 PNV cmb#95-ferrous fumarate-FA [] 28 mg iron- 800 mcg Tablet 1 tablet PO DAILY RF: 0 Discontinued metformin 500 mg tablet extended release 24 hr 500 mg PO DAILY RF: 0 Date of admission: 11/15/20 05:31 Primary Care Provider: Mike,Yolanda Carranza Admitting Provider: Dianna Jones Attending physician on admission: Dianna Jones Condition: Stable
== END 2020-11-16 21:35 | disposition home or self-care (01) | DRG 807 ==
LOC: ANHLDR 17:05 → ANHOB2 22:36
PROVIDERS: Advanced Practice Midwife; Admitting Provider Obstetrics & Gynecology; PCP Family Medicine; Visit Provider Obstetrics & Gynecology
DX: O24.429 Gestational diabetes mellitus in childbirth, unspecified control (principal); Z37.0 Single live birth; O76 Abnormality in fetal heart rate and rhythm complicating labor and delivery; Z3A.38 38 weeks gestation of pregnancy
CPT/HCPCS: 36415; 80307; 81001; 82948; 85014; 85018; 85025; 86592; 86850; 86900; 86901; 87086; 88307; A9270; J2590; J2795; J3010; J7120

== ENCOUNTER 2021-04-29 07:58 | Emergency (ER) | payer BC, OTHER, SELFPAY ==
--- NOTE | ~2021-04-29 | XR_ITS ---
EXAMINATION: XR lumbar spine 2-3V DATE: 04/29/2021 08:58 INDICATION: Right-sided sciatica TECHNIQUE: Anteroposterior and lateral views of the lumbar spine, and cone-down lateral view of the l umbosacral junction were obtained. COMPARISON: None. FINDINGS: Transitional T12 segment with right-sided hypoplastic riblet and left-sided transverse process. There are 11 more cephalad paired rib bearing thoracic segments on earlier chest radiograph dated 4. 15 degree levoscoliosis between T11 and L3. Sagittal alignment is normal. Vertebral body heights a re normal. Mild right-sided disc height loss at T12-L1 and L1-L2 and mild left-sided disc height loss at L3-L4 and L4-L5. Sacrum and bilateral sacroiliac joints are normal. IMPRESSION: 1. Mild lumbar levoscoliosis. Reviewed, dictated and finalized at location B. [employer]ELING SUPERVISOR
[2021-04-29 08:01] VITALS: BP 108/66; PULSE 109; RESP 18; TEMP 36.2; O2SAT 100
--- NOTE | 2021-04-29 08:48 | PC.NURSE ---
Pt. to XR
[2021-04-29] MEDS: CYCLOBENZAPRINE HCL 10 MG TABLET PO (08:59)
[2021-04-29] MEDS: KETOROLAC (*BKC) 60 MG/2 ML VIAL IM (08:59)
[2021-04-29 09:46] VITALS: BP 111/80; PULSE 93; RESP 14; O2SAT 100
--- NOTE | 2021-04-29 10:30 | ED.BACK ---
HPI - Back Pain/Injury General Chief Complaint: Back Pain/Injury Stated Complaint: back pain Time Seen by Provider: 04/29/21 08:12 History of Present Illness HPI Narrative: Patient is a 21-year-old female who presents ER with low back pain. Ongoing for 7 months. Intermittent in nature but worsening over the last few days. Has pain in her right buttock that goes down her leg. Occasionally feels [id number]. No saddle anesthesia or difficulty with urination/defecation. No known trauma. Has not been able to be evaluated for her back because she has had recurrent pregnancies that did not allow her to be imaged. I also limited her ability to take medication. Patient also reports she is about to be worked up for lupus and fibromyalgia. Related Data Home Medications Medication Instructions Recorded Confirmed PNV cmb#95-ferrous fumarate-FA 1 tablet PO DAILY 05/12/19 11/15/20 [] sertraline 50 mg PO DAILY 05/12/19 11/15/20 Allergies Allergy/AdvReac Type Severity Reaction Status Date / Time amoxicillin Allergy Mild RASH Verified 04/29/21 08:08 Review of Systems Review of Systems: All systems reviewed & are unremarkable except as noted in HPI and below Constitutional: Constitutional: Denies chills, Denies fever(s) and Denies weakness Gastrointestinal: Gastrointestinal: Denies abdominal pain, Denies nausea and Denies vomiting Musculoskeletal: Musculoskeletal: Reports back pain, Denies arthralgias, Denies joint swelling and Reports muscle cramps Neurologic: Denies syncope, Denies focal weakness and Denies numbness PMFSH Past Medical History Medical History (Updated 04/29/21 @ 10:39 by Dayton Ureña MD) Anxiety Asthma Depression Gestational diabetes (normal spontaneous vaginal delivery) PIH ( induced hypertension) Raynaud disease Surgical History Surgical History (Updated 04/29/21 @ 10:34 by Dayton Ureña MD) No pertinent past surgical history Family History Family History Father Diabetes mellitus Social History Social History Smoking status: Never smoker Second hand tobacco smoke exposure: No Substance use: never Gender identity (if verbalized by the patient): Female Spiritual care concerns: No Exam Narrative: GENERAL: Well-appearing, well-nourished, and in no acute distress. HEAD: Normocephalic, atraumatic. CHEST: Clear to auscultation. No respiratory distress. HEART: Regular rate and rhythm. Normal peripheral pulses. Back: No reproducible midline tenderness to the thoracic or lumbar spine. Mild paraspinal muscular tenderness in the right gluteal region. EXTREMITIES: Normal range of motion. No edema. SKIN: Warm, dry, no rash. NEURO: Alert and oriented x3. PSYCH: Normal mood and affect. Course Course Emergency Course: Patient informed of abnormalities on x-ray. Recommend continued follow-up with her PCP and possible referral to spine should symptoms persist. Vital Signs Vital signs: Vital Signs Temperature 97.1 F L 04/29/21 08:01 Pulse Rate 109 H 04/29/21 08:01 Respiratory Rate 18 04/29/21 08:01 Blood Pressure 108/66 04/29/21 08:01 Pulse Oximetry 100 04/29/21 08:01 Temperature 97.1 F L 04/29/21 08:01 Pulse Rate 93 04/29/21 09:46 Respiratory Rate 14 04/29/21 09:46 Blood Pressure 111/80 04/29/21 09:46 Pulse Oximetry 100 04/29/21 09:46 MDM - Back Pain/Injury Imaging Data Radiologist's impression: ITS Impressions Lumbar Spine X-Ray 04/29/21 09:01 IMPRESSION: 1. Mild lumbar levoscoliosis. Discharge Plan Discharge Clinical Impression: Sciatica, Levoscoliosis of thoracolumbar spine Patient Disposition: Home, Self-Care Condition: Stable Instructions: Sciatica (ED) Additional Instructions: Return to the ER if you have increased pain in your back, you develop lower e
== END 2021-04-29 10:45 | disposition home or self-care (01) ==
PROVIDERS: Emergency Provider Emergency Medicine; PCP Family Medicine
DX: M54.41 Lumbago with sciatica, right side (principal); M41.9 Scoliosis, unspecified; F41.9 Anxiety disorder, unspecified; J45.909 Unspecified asthma, uncomplicated; F32.A Depression, unspecified; I73.00 Raynaud's syndrome without gangrene
CPT/HCPCS: 72100; 96372; 99283; A9270; J1885

== ENCOUNTER 2021-09-19 12:00 | Emergency (ER) | payer BC, OTHER, SELFPAY ==
--- NOTE | ~2021-09-19 | CT_ITS ---
EXAMINATION: CT abdomen pelvis wo con DATE: 09/19/2021 14:08 INDICATION: Right lower quadrant abdominal pain, nausea and vomiting for one day TECHNIQUE: Computed tomography (CT) of the abdomen and pelvis was performed without intravenous contr ast. Automated exposure control and iterative reconstruction technique were employed. Exam dose: 221 .15 mGy-cm total exam DLP. COMPARISON: None. FINDINGS: The lung bases are clear. Normal heart size. No pericardial or pleural effusion. The liver, gallbladder, bile ducts, spleen, pancreas, pancreatic duct, and adrenal glands and kidneys are unremarkable on this limited noncontrast examination. Normal caliber of the abdominal aorta. No intraperitoneal or retroperitoneal or pelvic mass lesion or adenopathy or ascites. There is mild to moderate free fluid in the posterior cul-de-sac the uterus and adnexal areas are unr emarkable. No bowel obstruction, bowel wall thickening, pneumatosis or intraperitoneal free air. The appendix is not definitively demonstrated but no CT evidence of appendicitis is detected. Included skeletal structures are unremarkable. IMPRESSION: Mild to moderate free fluid in the posterior cul-de-sac; otherwise unremarkable examinat ion Reviewed, dictated and finalized at [facility]. Reviewed, dictated and finalized at location A. IMPRESSION: Mild to moderate free fluid in the posterior cul-de-sac; otherwise unremarkable examination
[2021-09-19 12:02] VITALS: BP 110/70; PULSE 112; RESP 16; TEMP 36.9; O2SAT 100
--- NOTE | 2021-09-19 12:21 | ED.NAVMDI ---
HPI - Nausea/Vomiting/Diarrhea General Chief complaint: Nausea/Vomiting/Diarrhea <AYAD Hodges Last Filed: 09/19/21 18:10> Stated complaint: vomiting <AYAD Hodges Last Filed: 09/19/21 18:10> Time Seen by Provider: 09/19/21 12:10 <AYAD Hodges Last Filed: 09/19/21 18:10> History of Present Illness HPI Narrative: Patient is a 21-year-old G2, P2 female here for evaluation of nausea, vomiting, diarrhea for the past 18 hours. Patient states that her symptoms came on after eating dinner yesterday. Her daughter is having similar symptoms. States she is been unable to keep any food or fluids down, reports about 8 episodes of vomiting nonbloody, nonbilious emesis today in addition to about 8 episodes of nonbloody diarrhea. Additionally reports some lower abdominal cramping that began around her umbilicus but has since spread to her left lower quadrant and intermittently into her right lower quadrant. Denies fevers, but does report chills. No recent antibiotic use. Denies dysuria, hematuria, urgency, frequency, lightheadedness. <AYAD Hodges Last Filed: 09/19/21 18:10> Related Data Home medications: Home Medications Medication Instructions Recorded Confirmed vit no.95-ferrous 1 tablet PO DAILY 05/12/19 11/15/20 fumarate 28 mg-folic acid 800 mcg tablet () sertraline 25 mg tablet 50 mg PO DAILY 05/12/19 11/15/20 <AYAD Hodges Last Filed: 09/19/21 18:10> Allergies/Adverse reactions: Allergies Allergy/AdvReac Type Severity Reaction Status Date / Time amoxicillin Allergy Mild RASH Verified 04/29/21 08:08 <AYAD Hodges Last Filed: 09/19/21 18:10> Review of Systems Review of Systems: Gen: Reports chills. Denies fevers Eyes: Denies eye pain or visual change ENT: Denies congestion Respiratory: Denies shortness of breath or cough CV: Denies chest pain or palpitations GI: Reports abdominal pain nausea, emesis and diarrhea : denies burning, urgency, frequency or hematuria Musculoskeletal: Denies back pain or muscle pain Neuro: Denies numbness, tingling, weakness or focal weakness Skin: Denies rash Except as documented, all other systems reviewed and negative <Maryjo Guerra PA-C - Last Filed: 09/19/21 18:10> [facility] Past Medical History Medical History: Medical History Anxiety Asthma Depression Gestational diabetes (normal spontaneous vaginal delivery) PIH ( induced hypertension) Raynaud disease <Maryjo Guerra PA-C - Last Filed: 09/19/21 18:10> Surgical History Surgical History: Surgical History No pertinent past surgical history <Maryjo Guerra PA-C - Last Filed: 09/19/21 18:10> Family History Family History: Family History Father Diabetes mellitus <Maryjo Guerra PA-C - Last Filed: 09/19/21 18:10> Social History Social History: Social History Smoking status: Never smoker Second hand tobacco smoke exposure: No Substance use: never Gender identity (if verbalized by the patient): Female Spiritual care concerns: No <Maryjo Guerra PA-C - Last Filed: 09/19/21 18:10> Exam Narrative: APPEARANCE: No acute distress, nontoxic, resting in bed EYES: EOMI HEENT: Normocephalic, atraumatic, OMM RESPIRATORY: No respiratory distress Clear to auscultation bilaterally with no rhonchi wheezing or rales. CARDIOVASCULAR: Regular rate and rhythm without murmurs rubs or gallops. ABDOMINAL: Mildly tender in the right lower quadrant. Soft, nondistended, no rebound or guarding : Exam performed with residential assistant Blanca. Small amount of white vaginal discharge no
[2021-09-19 12:35] LABS: Basophils Percent Auto 0.3 % (0.2-1.2); Eosinophils Absolute Auto 0.1 K/mm3 (0-0.3); Eosinophils Percent Auto 0.8 % (0-4.4); Hematocrit 41.4 % (37.0-47.0); Hemoglobin 13.3 g/dL (12.0-15.0); Immature Granulocyte Absolute 0.02 K/mm3 (0.00-0.031); Immature Granulocyte Percent A 0.3 % (0-0.5); Lymphocytes Absolute Auto 0.54 K/mm3 (0.9-3.2); Lymphocytes Percent Auto 7.3 % (18.3-44.2); Mean Corpuscular HGB Conc 32.1 g/dl (32-36); Mean Corpuscular Hemoglobin 28.7 pg (26-34); Mean Corpuscular Volume 89.4 fl (80-100); Mean Platelet Volume 11.3 fl (7.4-10.4); Monocytes Absolute Auto 0.6 K/mm3 (0.1-0.6); Monocytes Percent Auto 7.5 % (2.6-8.5); Neutrophils Absolute Auto 6.2 K/mm3 (1.3-6.7); Neutrophils Percent Auto 83.8 % (45.5-73.1); Platelet Count Result 191 k/mm3 (150-375); Red Blood Count 4.63 M/mm3 (4.2-5.4); Red Cell Distribution Width 12.8 % (11.5-14.5); White Blood Count 7.4 K/mm3 (4.5-10.0)
[2021-09-19 12:44] LABS: Alanine Aminotransferase 23 U/L (6-35); Albumin Level 4.5 g/dL (3.5-5.1); Alkaline Phosphatase 116 U/L (38-126); Anion Gap 9 mmol/L (8-16); Aspartate Amino Transferase 33 U/L (14-36); Bilirubin,Total 1.2 mg/dL (0.2-1.3); Blood Urea Nitrogen 12 mg/dL (7-17); Calcium 8.9 mg/dL (8.4-10.2); Carbon Dioxide 24 mmol/L (22-30); Chloride 107 mmol/L (98-107); Estimated CRCL calculation 110 ml/min; Estimated Glomerular Filt Rate > 60; Glucose 104 mg/dL (65-110); Lipase 29 U/L (23-300); Sodium 140 mmol/L (137-145)
[2021-09-19] MEDS: SODIUM CHLORIDE 0.9% IV 1,000 ML 999 ML IV CONT (12:54)
[2021-09-19] MEDS: ONDANSETRON INJ 4 MG/2 ML VIAL IV PUSH (12:59)
[2021-09-19 13:00] VITALS: BP 129/78; PULSE 94; RESP 14; O2SAT 100
[2021-09-19 13:10] LABS: Appearance Urine Slightly Cloudy (Clear); Bilirubin Urine Negative (Negative); Blood Urine Negative (Negative); Color Urine Yellow (Yellow); Glucose Urine UA Negative (Negative); Ketones Urine 2+ mg/dL (Negative); Leukocyte Esterase Ur Negative LEU/UL (Negative); Nitrate Urine Negative (Negative); Protein Urine Negative (Negative); Specific Grav Ur >= 1.030 (1.001-1.035); Urobilinogen Urine 0.2 mg/dL (<2.0); pH Urine 5.5 (5.0-9.0)
[2021-09-19 13:16] LABS: Add Urine Microscopic? YES; Mucus Urine Heavy /lpf; RBC Urine 0-2 /hpf (0-2); Squamous Epithelial Cell Urine Many /hpf (Few); WBC Urine 0-3 /hpf
[2021-09-19] MEDS: DICYCLOMINE HCL INJ 20 MG/2 ML VIAL IM (14:22)
[2021-09-19] MEDS: KETOROLAC 15 MG/ML VIAL (*BKC) IV PUSH (15:12)
[2021-09-19 15:42] VITALS: TEMP 36.9
[2021-09-19 16:14] VITALS: BP 104/75; PULSE 87; RESP 16; O2SAT 98
== END 2021-09-19 16:23 | disposition home or self-care (01) ==
PROVIDERS: Physician Assistant; Emergency Provider Emergency Medicine; PCP Family Medicine
DX: R11.2 Nausea with vomiting, unspecified (principal); J45.909 Unspecified asthma, uncomplicated; I73.00 Raynaud's syndrome without gangrene; F41.9 Anxiety disorder, unspecified
CPT/HCPCS: 36415; 74176; 80053; 81001; 81025; 83690; 85025; 87070; 87491; 87591; 87808; 96361; 96372; 96374; 96375; 99284; J0500; J1885; J2405; J7030

== ENCOUNTER 2022-03-08 17:17 | Emergency (ER) | payer BC, OTHER, SELFPAY ==
--- NOTE | ~2022-03-08 | CT_ITS ---
EXAMINATION: CT abdomen pelvis w con INDICATION: Right lower quadrant pain, nausea and vomiting TECHNIQUE: Computed tomographic images of the abdomen and pelvis were obtained after the administrati on of 100 cc of Omnipaque 350 intravenous contrast. The dose-length product (DLP) was 233.45 mGy-cm. Automated exposure control and iterative reconstruction technique were employed. COMPARISON: 09/19/2021 FINDINGS: The lung bases are clear. The heart size is normal. The liver, spleen, pancreas, gallbladde r, and adrenal glands are normal. The kidneys are unremarkable. No pathologically enlarged abdominal or pelvic lymph nodes are identified. There is no free intraperitoneal gas or evidence of bowel obstr uction. The appendix is normal. There is moderate enlargement of the parametrial veins. IMPRESSION: 1. Moderate enlargement of the parametrial veins which can be seen in the setting of pelvic venous co ngestion syndrome. Reviewed, dictated and finalized at location F. CAL SONOGRAPHER IMPRESSION: 1. Moderate enlargement of the parametrial veins which can be seen in the setti ng of pelvic venous congestion syndrome.
[2022-03-08 17:18] VITALS: BP 133/94; PULSE 110; RESP 18; TEMP 36.9; O2SAT 100
[2022-03-08 17:43] LABS: Alanine Aminotransferase 21 U/L (6-35); Albumin Level 4.7 g/dL (3.5-5.1); Alkaline Phosphatase 100 U/L (38-126); Anion Gap 13 mmol/L (8-16); Aspartate Amino Transferase 26 U/L (14-36); Basophils Percent Auto 0.4 % (0.2-1.2); Bilirubin,Total 0.3 mg/dL (0.2-1.3); Blood Urea Nitrogen 13 mg/dL (7-17); Calcium 9.2 mg/dL (8.4-10.2); Carbon Dioxide 26 mmol/L (22-30); Chloride 103 mmol/L (98-107); Eosinophils Absolute Auto 0.1 K/mm3 (0-0.3); Eosinophils Percent Auto 1.4 % (0-4.4); Estimated CRCL calculation 82 ml/min; Estimated Glomerular Filt Rate > 60; Glucose 93 mg/dL (65-110); Hematocrit 41.5 % (37.0-47.0); Hemoglobin 13.4 g/dL (12.0-15.0); Immature Granulocyte Absolute 0.03 K/mm3 (0.00-0.031); Immature Granulocyte Percent A 0.5 % (0-0.5); Lipase 50 U/L (23-300); Lymphocytes Absolute Auto 2.38 K/mm3 (0.9-3.2); Lymphocytes Percent Auto 42.9 % (18.3-44.2); Mean Corpuscular HGB Conc 32.3 g/dl (32-36); Mean Corpuscular Hemoglobin 29.5 pg (26-34); Mean Corpuscular Volume 91.2 fl (80-100); Mean Platelet Volume 10.5 fl (7.4-10.4); Monocytes Absolute Auto 0.4 K/mm3 (0.1-0.6); Neutrophils Absolute Auto 2.7 K/mm3 (1.3-6.7); Neutrophils Percent Auto 47.8 % (45.5-73.1); Platelet Count Result 257 k/mm3 (150-375); Potassium 3.6 mmol/L (3.4-5.0); Red Blood Count 4.55 M/mm3 (4.2-5.4); Sodium 142 mmol/L (137-145); White Blood Count 5.6 K/mm3 (4.5-10.0)
[2022-03-08 17:51] LABS: Appearance Urine Clear (Clear); Bilirubin Urine Negative (Negative); Blood Urine Negative (Negative); Color Urine Yellow (Yellow); Glucose Urine UA Negative (Negative); Ketones Urine Trace mg/dL (Negative); Leukocyte Esterase Ur Negative LEU/UL (Negative); Nitrate Urine Negative (Negative); Protein Urine Negative (Negative); Specific Grav Ur >= 1.030 (1.001-1.035); Urobilinogen Urine 0.2 mg/dL (<2.0); pH Urine 5.5 (5.0-9.0)
[2022-03-08 17:59] LABS: Add Urine Microscopic? YES; Bacteria Urine Trace /hpf; Mucus Urine Rare /lpf; RBC Urine 0-2 /hpf (0-2); Squamous Epithelial Cell Urine Few /hpf (Few); WBC Urine 0-3 /hpf
[2022-03-08 18:32] LABS: Pregnancy On Board Control Positive; Urine Pregnancy Test Negative
--- NOTE | 2022-03-08 20:40 | ED.ABDPAIN ---
HPI - Abdominal Pain General Chief Complaint: Abdominal Pain Stated Complaint: abd pain Time Seen by Provider: 03/08/22 20:31 History of Present Illness HPI narrative: Patient is a 22-year-old female with history of fibromyalgia here for evaluation of right lower quadrant abdominal pain. Patient states the pain came on when she was seated today, described as sharp and stabbing in nature. Also notes the pain radiates down her right lower extremity into her foot. Patient decided to be evaluated today because she noticed some vaginal spotting in addition to nausea. Patient states she smoked marijuana prior to arrival with improvement of her nausea but the pain remains. No fevers, chills, diarrhea or constipation. No history of surgeries on her abdomen. No incontinence or retention of bowel or bladder. Related Data Home Medications Medication Instructions Recorded Confirmed vit no.95-ferrous 1 tablet PO DAILY 05/12/19 11/15/20 fumarate 28 mg-folic acid 800 mcg tablet () sertraline 25 mg tablet 50 mg PO DAILY 05/12/19 11/15/20 Allergies Allergy/AdvReac Type Severity Reaction Status Date / Time amoxicillin Allergy Mild RASH Verified 03/08/22 17:20 Review of Systems Review of Systems: Gen.: Denies fevers or chills Eyes: Denies eye pain or visual change ENT: Denies congestion Respiratory: Denies shortness of breath or cough CV: Denies chest pain or palpitations GI: Reports abdominal pain and nausea. denies burning, urgency, frequency or hematuria Musculoskeletal: Denies back pain or muscle pain Neuro: Denies numbness, tingling, weakness or focal weakness Skin: Denies rash Except as documented, all other systems reviewed and negative [facility] Past Medical History Medical History Anxiety Asthma Depression Gestational diabetes (normal spontaneous vaginal delivery) PIH ( induced hypertension) Raynaud disease Surgical History Surgical History No pertinent past surgical history Family History Family History Father Diabetes mellitus Social History Social History Smoking status: Never smoker Second hand tobacco smoke exposure: No Substance use: never Gender identity (if verbalized by the patient): Female Spiritual care concerns: No Exam Narrative: APPEARANCE: Well appearing, no pain in distress, well-nourished. Head: Normocephalic and atraumatic. EYES: PERRLA/EOMI, conjunctivae clear NOSE: No nasal drainage EARS: External ear normal in appearance THROAT: Oropharynx is clear. Mucous membranes are moist. NECK: Supple. No adenopathy, no masses. RESPIRATORY: Airway patent, respirations nonlabored. Clear to auscultation bilaterally, no rales, rhonchi, wheezing. CARDIOVASCULAR: Regular rate and rhythm without murmurs, rubs, or gallops. ABDOMINAL: Tender to palpation to right lower quadrant. Normoactive bowel sounds. Soft, nondistended. No rebound tenderness or guarding. MUSCULOSKELETAL: Straight leg raise positive on the right. Extremities are warm and well-perfused. Moves all extremities well. No edema. NEURO: Normal speech. No focal neurologic deficits. SKIN: Skin is warm and dry. No rashes. PSYCHIATRIC: Normal affect/mood. Course Vital Signs Vital signs: Vital Signs Temperature 98.5 F 03/08/22 17:18 Pulse Rate 110 H 03/08/22 17:18 Respiratory Rate 18 03/08/22 17:18 Blood Pressure 133/94 H 03/08/22 17:18 Pulse Oximetry 100 03/08/22 17:18 Temperature 98.5 F 03/08/22 17:18 Pulse Rate 103 H 03/08/22 23:08 Respiratory Rate 16 03/08/22 23:08 Blood Pressure 120/81 03/08/22 23:08 Pulse Oximetry 100 03/08/22 23:08 MDM - Abdominal Pain MDM Narrative Medical decision making narrative: 22-year
[2022-03-08] MEDS: KETOROLAC 15 MG/ML VIAL (*BKC) IV PUSH (21:35)
[2022-03-08 23:08] VITALS: BP 120/81; PULSE 103; RESP 16; O2SAT 100
== END 2022-03-08 23:08 | disposition home or self-care (01) ==
PROVIDERS: Emergency Medicine; Emergency Provider Emergency Medicine; PCP Family Medicine
DX: M54.31 Sciatica, right side (principal); F41.9 Anxiety disorder, unspecified; J45.909 Unspecified asthma, uncomplicated; F32.9 Major depressive disorder, single episode, unspecified
CPT/HCPCS: 36415; 74177; 80053; 81001; 81025; 83690; 85025; 96374; 99284; J1885; Q9967

== ENCOUNTER 2022-06-01 05:15 | Emergency (ER) | payer BC, OTHER, SELFPAY ==
[2022-06-01] VITALS (8 sets, daily range): BP systolic 105–118; BP diastolic 73–80; PULSE 85–111; RESP 16–25; TEMP 37.2; O2SAT 97–100
--- NOTE | ~2022-06-01 | CT_ITS ---
CT Abdomen and Pelvis with contrast. History: Abdominal pain. Spiral CT of the abdomen and pelvis was performed after the administration of intravenous contrast. 1 00 cc of Omnipaque 350 was administered intravenously without complication. Dose reduction technique was used on this scan by utilizing automated exposure control and iterative reconstruction technique. The dose-length product (DLP) was 222.11 mGy-cm. COMPARISON: 03/08/2022 Findings: Scans through the lung bases demonstrate mild atelectatic change. The liver, spleen, pancreas, gallbladder, adrenals and kidneys are within normal limits. No evidence of aortic aneurysm. No lymphadenopathy is seen. There is no evidence of bowel obstruction. There is no evidence to suggest acute appendicitis or dive rticulitis. Images through the pelvis were performed. Urinary bladder unremarkable. No adnexal mass evident. Pro minent parametrial veins again noted. Trace free fluid noted in the pelvis. Impression: Prominent parametrial veins are similar to prior exam. Correlate for pelvic congestion syndrome. Trace free fluid in the pelvis, nonspecific. This can be physiologic in a young woman. Reviewed, dictated and finalized at [facility]. [employer] Impression: Prominent parametrial veins are similar to prior exam. Correlate for pelvic con gestion syndrome. Trace free fluid in the pelvis, nonspecific. This can be physiologic in a young woman.
--- NOTE | 2022-06-01 05:32 | ED.NAVMDI ---
HPI - Nausea/Vomiting/Diarrhea General Chief complaint: Nausea/Vomiting/Diarrhea Stated complaint: N & Vomiting Time Seen by Provider: 06/01/22 05:24 History of Present Illness HPI Narrative: This is a 22F with history of fibromyalgia who presents to the ED complaining of vomiting and diarrhea for the past several hours. She states this is accompanied by feeling fevers and chills. She complains of generalized body aches, which is typical if she feels ill. She denies recent travel or known sick contacts. Related Data Home Medications Medication Instructions Recorded Confirmed vit no.95-ferrous 1 tablet PO DAILY 05/12/19 11/15/20 fumarate 28 mg-folic acid 800 mcg tablet () sertraline 25 mg tablet 50 mg PO DAILY 05/12/19 11/15/20 Allergies Allergy/AdvReac Type Severity Reaction Status Date / Time amoxicillin Allergy Mild RASH Verified 06/01/22 05:41 Review of Systems Review of Systems: CONSTITUTIONAL: fever and chills Denies or sweats. EYES: Denies visual changes, redness, or discharge. ENT: Denies rhinorrhea, congestion, sore throat, or otalgia. CARDIOVASCULAR: Denies chest pain, palpitations, or edema. RESPIRATORY: Denies cough or dyspnea. GASTROINTESTINAL: nausea, vomiting, and diarrhea; Denies abdominal pain GENITOURINARY: Denies dysuria or hematuria. LMP-ongoing SKIN: Denies rash or itching. MUSCULOSKELETAL: Denies back pain, joint pain, or myalgia. NEUROLOGIC: Denies headache, numbness, dizziness, or weakness. PSYCHIATRIC: Denies anxiety or depression. [facility] Past Medical History Medical History Anxiety Asthma Depression Gestational diabetes (normal spontaneous vaginal delivery) PIH ( induced hypertension) Raynaud disease Surgical History Surgical History No pertinent past surgical history Family History Family History Father Diabetes mellitus Social History Social History Smoking status: Never smoker Second hand tobacco smoke exposure: No Substance use: never Gender identity (if verbalized by the patient): Female Spiritual care concerns: No Exam Narrative: GENERAL: Well-developed, well-nourished, and in no acute distress. Appears uncomfortable HEAD: Normocephalic, atraumatic. EYES: PERRLA and EOMI. ENT: Mucous membranes moist. Oropharynx without tonsillar hypertrophy exudate or other lesions. CHEST: Clear to auscultation. No respiratory distress. No wheezes rales or rhonchi HEART: Regular rate and rhythm. No murmur heard. Normal peripheral pulses. ABDOMEN: Soft, diffusely tender to palpation with RLQ abdominal tenderness, Rovsing's sign positive, nondistended, normal active bowel sounds. Right CVA tenderness to palpation. No left CVA tenderness to palpation EXTREMITIES: Normal range of motion. No edema. SKIN: Warm, dry, no rash. NEURO: No focal deficits. Alert and oriented x3. PSYCH: Normal mood and affect. Course Course Emergency Course: 07:14 - CBC and chemistries unremarkable. UA not concerning for UTI. test negative. CT demonstrates pelvic congestion syndrome but is otherwise unremarkable. The patient states she feels better and is comfortable with discharge. Discussed return and emergency precautions including signs/symptoms of acute abdomen. The patient voiced understanding and is comfortable with the plan. All questions answered to the patient's satisfaction. Vital Signs Vital signs: Vital Signs Temperature 98.9 F 06/01/22 05:23 Pulse Rate 85 06/01/22 05:23 Respiratory Rate 18 06/01/22 05:23 Blood Pressure 118/74 06/01/22 05:23 Pulse Oximetry 98 06/01/22 05:23 Oxygen Delivery Room Air 06/01/22 05:23 Temperature 98.9 F 06/01/22 05:30 Pulse Rate 103 H 06/01/22 06:30 Respir
[2022-06-01] MEDS: ONDANSETRON INJ 4 MG/2 ML VIAL IV PUSH (05:35)
[2022-06-01] MEDS: SODIUM CHLORIDE 0.9% IV 1,000 ML 999 ML IV CONT (05:37)
[2022-06-01 05:38] LABS: Basophils Percent Auto 0.1 % (0.2-1.2); Eosinophils Percent Auto 0.3 % (0-4.4); Hematocrit 38.6 % (37.0-47.0); Hemoglobin 13.1 g/dL (12.0-15.0); Immature Granulocyte Absolute 0.03 K/mm3 (0.00-0.031); Immature Granulocyte Percent A 0.3 % (0-0.5); Lymphocytes Absolute Auto 0.43 K/mm3 (0.9-3.2); Lymphocytes Percent Auto 4.5 % (18.3-44.2); Mean Corpuscular HGB Conc 33.9 g/dl (32-36); Mean Corpuscular Hemoglobin 29.4 pg (26-34); Mean Corpuscular Volume 86.5 fl (80-100); Mean Platelet Volume 10.6 fl (7.4-10.4); Monocytes Absolute Auto 0.3 K/mm3 (0.1-0.6); Monocytes Percent Auto 3.4 % (2.6-8.5); Neutrophils Absolute Auto 8.7 K/mm3 (1.3-6.7); Neutrophils Percent Auto 91.4 % (45.5-73.1); Platelet Count Result 216 k/mm3 (150-375); Red Blood Count 4.46 M/mm3 (4.2-5.4); Red Cell Distribution Width 13.1 % (11.5-14.5); White Blood Count 9.6 K/mm3 (4.5-10.0)
[2022-06-01 05:48] LABS: Alanine Aminotransferase 21 U/L (6-35); Albumin Level 4.7 g/dL (3.5-5.1); Alkaline Phosphatase 103 U/L (38-126); Anion Gap 8 mmol/L (8-16); Aspartate Amino Transferase 25 U/L (14-36); Bilirubin,Total 1.1 mg/dL (0.2-1.3); Blood Urea Nitrogen 12 mg/dL (7-17); Calcium 8.8 mg/dL (8.4-10.2); Carbon Dioxide 22 mmol/L (22-30); Chloride 108 mmol/L (98-107); Estimated CRCL calculation 106 ml/min; Estimated Glomerular Filt Rate > 60; Glucose 118 mg/dL (65-110); Potassium 3.5 mmol/L (3.4-5.0); Sodium 138 mmol/L (137-145)
[2022-06-01 06:40] LABS: Add Urine Microscopic? YES; Appearance Urine Clear (Clear); Bilirubin Urine Negative (Negative); Blood Urine Negative (Negative); Color Urine Yellow (Yellow); Glucose Urine UA Negative (Negative); Ketones Urine 3+ mg/dL (Negative); Leukocyte Esterase Ur Negative LEU/UL (Negative); Nitrate Urine Negative (Negative); Protein Urine Trace mg/dL (Negative)
[2022-06-01 06:44] LABS: Mucus Urine Rare /lpf; RBC Urine 0-2 /hpf (0-2); Squamous Epithelial Cell Urine Occasional /hpf (Few); WBC Urine 0-3 /hpf
== END 2022-06-01 06:58 | disposition home or self-care (01) ==
LOC: ANHED 06:07
PROVIDERS: Emergency Provider Preventive Medicine Aerospace Medicine; PCP Family Medicine
DX: K52.9 Noninfective gastroenteritis and colitis, unspecified (principal); R11.2 Nausea with vomiting, unspecified; F41.9 Anxiety disorder, unspecified; J45.909 Unspecified asthma, uncomplicated; F32.9 Major depressive disorder, single episode, unspecified
CPT/HCPCS: 36415; 74177; 80053; 81001; 81025; 85025; 96361; 96374; 96375; 99284; J0131; J2405; J7030; Q9967

== ENCOUNTER 2022-06-19 08:14 | Emergency (ER) | payer BC, OTHER, SELFPAY ==
[2022-06-19 08:17] VITALS: BP 146/95; PULSE 122; RESP 16; TEMP 36.3; O2SAT 100
[2022-06-19 08:43] LABS: Basophils Percent Auto 0.3 % (0.2-1.2); Hematocrit 41.6 % (37.0-47.0); Hemoglobin 14.1 g/dL (12.0-15.0); Immature Granulocyte Absolute 0.02 K/mm3 (0.00-0.031); Immature Granulocyte Percent A 0.5 % (0-0.5); Lymphocytes Absolute Auto 1.11 K/mm3 (0.9-3.2); Lymphocytes Percent Auto 28.9 % (18.3-44.2); Mean Corpuscular HGB Conc 33.9 g/dl (32-36); Mean Corpuscular Hemoglobin 29.1 pg (26-34); Mean Corpuscular Volume 85.8 fl (80-100); Mean Platelet Volume 10.4 fl (7.4-10.4); Monocytes Absolute Auto 0.4 K/mm3 (0.1-0.6); Monocytes Percent Auto 10.9 % (2.6-8.5); Neutrophils Absolute Auto 2.2 K/mm3 (1.3-6.7); Neutrophils Percent Auto 58.4 % (45.5-73.1); Platelet Count Result 231 k/mm3 (150-375); Red Blood Count 4.85 M/mm3 (4.2-5.4); White Blood Count 3.8 K/mm3 (4.5-10.0)
[2022-06-19 08:50] LABS: Appearance Urine Cloudy (Clear); Bacteria Urine Rare /hpf; Bilirubin Urine Negative (Negative); Blood Urine Negative (Negative); Color Urine Yellow (Yellow); Glucose Urine UA Negative (Negative); Ketones Urine 2+ mg/dL (Negative); Leukocyte Esterase Ur Negative LEU/UL (Negative); Nitrate Urine Negative (Negative); Non Pathogenic Casts 0-2; Protein Urine 1+ mg/dL (Negative); RBC Urine 0-2 /hpf (0-2); Specific Grav Ur 1.029 (1.001-1.035); Squamous Epithelial Cell Urine Few /hpf (Few); Urobilinogen Urine 0.2 mg/dL (<2.0); WBC Urine 0-5 /hpf; pH Urine 5.5 (5.0-9.0)
--- NOTE | 2022-06-19 08:54 | ED.NAVMDI ---
HPI - Nausea/Vomiting/Diarrhea General Chief complaint: Nausea/Vomiting/Diarrhea Stated complaint: diarrhea Time Seen by Provider: 06/19/22 08:36 History of Present Illness HPI Narrative: This is a 22-year-old female recently seen here for gastroenteritis, returns emergency department complaining of 20 episodes of watery stools for the past 5 days. She denies blood with any stool and fevers. She has had occasional episodes of vomiting. She denies rash, shortness of breath or cough. Related Data Home Medications Medication Instructions Recorded Confirmed vit no.95-ferrous 1 tablet PO DAILY 05/12/19 11/15/20 fumarate 28 mg-folic acid 800 mcg tablet () sertraline 25 mg tablet 50 mg PO DAILY 05/12/19 11/15/20 Allergies Allergy/AdvReac Type Severity Reaction Status Date / Time amoxicillin Allergy Mild RASH Verified 06/19/22 08:32 Review of Systems Review of Systems: CONSTITUTIONAL: Denies fever, chills, or sweats. ENT: Denies rhinorrhea, congestion, sore throat, or otalgia. CARDIOVASCULAR: Denies chest pain, palpitations, or edema. RESPIRATORY: Denies cough or dyspnea. GASTROINTESTINAL: Abdominal cramping, diarrhea, nausea and vomiting GENITOURINARY: Last menstrual period 1 month ago denies dysuria or hematuria. SKIN: Denies rash or itching. MUSCULOSKELETAL: Denies back pain, joint pain, or myalgia. NEUROLOGIC: Denies headache, numbness, dizziness, or weakness. PSYCHIATRIC: Denies anxiety or depression. PMFSH Past Medical History Medical History Anxiety Asthma Depression Gestational diabetes (normal spontaneous vaginal delivery) PIH ( induced hypertension) Raynaud disease Surgical History Surgical History No pertinent past surgical history Family History Family History Father Diabetes mellitus Social History Social History Smoking status: Never smoker Second hand tobacco smoke exposure: No Substance use: never Gender identity (if verbalized by the patient): Female Spiritual care concerns: No Exam Narrative: GENERAL: Well-developed, well-nourished, and in no acute distress. HEAD: Normocephalic, atraumatic. EYES: PERRLA and EOMI. ENT: Nares clear, no rhinorrhea or epistaxis. Mucous membranes dry. Oropharynx without tonsillar hypertrophy exudate or other lesions. NECK: Supple. No adenopathy or masses. No carotid bruits or JVD CHEST: Clear to auscultation. No respiratory distress. No wheezes rales or rhonchi HEART: Regular rate and rhythm. No murmur heard. Normal peripheral pulses. ABDOMEN: Soft, minimal diffuse tenderness to palpation, nondistended, normal active bowel sounds. EXTREMITIES: Normal range of motion. No edema. SKIN: Warm, dry, no rash. NEURO: No focal deficits. Alert and oriented x3. PSYCH: Normal mood and affect. Course Course Emergency Course: 13:37 - Labs not concerning for kidney injury though demonstrate mild hypokalemia. CBC demonstrates decreased white blood cell count at 3.8 but is otherwise unremarkable. Patient tested negative for C. difficile and a urinalysis was not concerning for UTI. test was negative. Considering the number of stools per day, will discharge with an oral antibiotic. Discussed return and emergency precautions including signs/symptoms of acute abdomen and intractable vomiting with the patient. She voiced understanding and is comfortable with the plan. All questions answered to her satisfaction. Vital Signs Vital signs: Vital Signs Temperature 97.3 F L 06/19/22 08:17 Pulse Rate 122 H 06/19/22 08:17 Respiratory Rate 16 06/19/22 08:17 Blood Pressure 146/95 H 06/19/22 08:17 Pulse Oximetry 100 06/19/22 08:17 Oxygen Delivery Room Air 06/19/22 08:17 Te
[2022-06-19 08:57] LABS: Alanine Aminotransferase 23 U/L (6-35); Albumin Level 4.8 g/dL (3.5-5.1); Alkaline Phosphatase 92 U/L (38-126); Anion Gap 8 mmol/L (8-16); Aspartate Amino Transferase 32 U/L (14-36); Bilirubin,Total 0.7 mg/dL (0.2-1.3); Blood Urea Nitrogen 12 mg/dL (7-17); Calcium 9.2 mg/dL (8.4-10.2); Carbon Dioxide 24 mmol/L (22-30); Chloride 103 mmol/L (98-107); Estimated CRCL calculation 95 ml/min; Estimated Glomerular Filt Rate > 60; Glucose 100 mg/dL (65-110); Lipase 28 U/L (23-300); Sodium 135 mmol/L (137-145)
[2022-06-19] MEDS: SODIUM CHLORIDE 0.9% IV 2,000 ML 999 ML IV CONT (08:59)
[2022-06-19 09:10] VITALS: BP 123/98; PULSE 97; RESP 12; O2SAT 97
[2022-06-19 09:43] LABS: Add Urine Microscopic? YES
[2022-06-19 10:02] VITALS: BP 120/79; PULSE 88; RESP 14; O2SAT 97
[2022-06-19 10:48] VITALS: BP 123/84; PULSE 89; RESP 20; O2SAT 100
[2022-06-19 12:11] VITALS: BP 130/88; PULSE 94; RESP 27; O2SAT 100
[2022-06-19] MEDS: PROCHLORPERAZINE EDISYLATE 10 MG/2 ML VIAL IV PUSH (12:30)
[2022-06-19 13:28] LABS: Toxigenic C. Diff NEGATIVE (NEGATIVE)
[2022-06-19 14:10] VITALS: BP 97/57; PULSE 106; RESP 18; O2SAT 100
== END 2022-06-19 14:10 | disposition home or self-care (01) ==
PROVIDERS: Emergency Provider Preventive Medicine Aerospace Medicine; PCP Family Medicine
DX: R19.7 Diarrhea, unspecified (principal); F41.9 Anxiety disorder, unspecified; J45.909 Unspecified asthma, uncomplicated; F32.9 Major depressive disorder, single episode, unspecified
CPT/HCPCS: 36415; 80053; 81001; 81025; 83690; 85025; 87493; 96361; 96374; 99284; J0780; J7030

== ENCOUNTER 2022-08-17 11:27 | Emergency (ER) | payer BC, OTHER, SELFPAY ==
--- NOTE | ~2022-08-17 | XR_ITS ---
EXAMINATION: XR wrist RT min 3V DATE: 08/17/2022 11:49 INDICATION: Right wrist pain TECHNIQUE: Posteroanterior, ulnar deviation, oblique, and lateral views of the right wrist were obtai charlene. COMPARISON: none FINDINGS: 2 mm ulnar positive variance. Alignment is otherwise normal. No fracture. Joint spaces are normal. So ft tissues are unremarkable. IMPRESSION: 1. 2 mm ulnar positive variance. Otherwise unremarkable right wrist radiographs. Reviewed, dictated and finalized at location A. IMPRESSION: 1. 2 mm ulnar positive variance. Otherwise unremarkable right wrist radiographs .
[2022-08-17 11:48] VITALS: BP 119/92; PULSE 86; RESP 20; TEMP 37.1; O2SAT 100
--- NOTE | 2022-08-17 11:57 | ED.UPPEXIN ---
HPI - Extremity Injury (Upper) General Chief Complaint: Extremity Injury, Upper Stated Complaint: right wrist pain Time Seen by Provider: 08/17/22 11:58 Source: patient and RN notes reviewed Mode of arrival: ambulatory Limitations: no limitations History of Present Illness HPI narrative: 22-year-old female presents with concern for right wrist pain for 1 and half months. Reports she hyperextended the wrist during a yoga pose and has been having pain since then. Reports Nathanael wrap compression makes the pain worse, she has not been able to find a well-fitting wrist brace that has helped. Reports she takes anti-inflammatories daily for fibromyalgia. She denies redness, warmth, swelling, open skin, decreased strength, decreased sensation, decreased range of motion. Reports pain occasionally shoots up the arm and down the hand. She reports pain is worsened when she puts her 1st and 2nd fingers together complaint: injury to: right and wrist Related Data Home Medications Medication Instructions Recorded Confirmed vit no.95-ferrous 1 tablet PO DAILY 05/12/19 11/15/20 fumarate 28 mg-folic acid 800 mcg tablet () duloxetine 30 mg capsule,delayed 30 mg PO BID 08/17/22 08/17/22 release Allergies Allergy/AdvReac Type Severity Reaction Status Date / Time amoxicillin Allergy Mild RASH Verified 06/19/22 08:32 Review of Systems Review of Systems: CONSTITUTIONAL: Denies malaise, chills, sweats, or fever. CARDIOVASCULAR: Denies chest pain, palpitations, or edema. RESPIRATORY: Denies cough or dyspnea. SKIN: Denies rash or itching, bruising, redness, swelling. MUSCULOSKELETAL: Reports right wrist pain NEUROLOGIC: Denies numbness, weakness All systems reviewed & are unremarkable except as noted in HPI and below PMFSH Past Medical History Medical History Anxiety Asthma Depression Gestational diabetes (normal spontaneous vaginal delivery) PIH ( induced hypertension) Raynaud disease Surgical History Surgical History No pertinent past surgical history Family History Family History Father Diabetes mellitus Social History Social History Smoking status: Never smoker Second hand tobacco smoke exposure: No Substance use: never Gender identity (if verbalized by the patient): Female Spiritual care concerns: No Comments At time of signature, agree with nursing past medical, surgical, social and family history. There is no relevant family history pertinent to the presenting complaint Exam Narrative: GENERAL: Well-appearing, well-nourished, and in no acute distress. HEAD: Normocephalic, atraumatic. EYES: PERRLA, conjunctivae clear NECK: Supple. CHEST: Speaks in full sentences. No respiratory distress. HEART: Regular rate and rhythm. Normal and equal peripheral pulses. EXTREMITIES: Right wrist, digits have grossly normal strength and sensation, grossly normal range of motion. No edema or ecchymosis. Normal sensation with sensitivity to light touch and pain. No point tenderness. No open wounds, no skin tenting, no devitalized tissue or atrophy, no trophic changes, no obvious deformity, alignment normal, nearby joints and structures intact. Distal pulses palpable and equal bilaterally, skin warm, dry, pink. Capillary refill less than 3 seconds. SKIN: Warm, dry, no rash. NEURO: Alert and oriented x3. PSYCH: Normal mood and affect Course Course Emergency Course: Patient is aware of diagnosis, understands and agrees to treatment plan. Anticipatory guidance given. Patient agrees to follow-up as directed and is aware of reasons to seek care at the emergency department. Portions of this record may have been created with voice recognition software Level of
== END 2022-08-17 12:10 | disposition home or self-care (01) ==
PROVIDERS: Emergency Provider Nurse Practitioner; PCP Family Medicine
DX: Q74.0 Other congenital malformations of upper limb(s), including shoulder girdle (principal); M25.531 Pain in right wrist; J45.909 Unspecified asthma, uncomplicated; I73.00 Raynaud's syndrome without gangrene; M79.7 Fibromyalgia
CPT/HCPCS: 73110; 99213; G0463

== ENCOUNTER 2022-11-21 10:14 | Outpatient (CLI) | payer BC, OTHER, SELFPAY ==
--- NOTE | 2022-11-21 11:00 | NEURO_ITS ---
Impression: # Complains of right wrist pain with no swelling or decreased range of motion. # No Carpal Tunnel Syndrome. # Left ulnar neuropathy across the elbow. # Normal needle/EMG. # Clinical correlation recommended. Nerve Conduction Studies Anti Sensory Summary Table Stim Site NR Peak (ms) P-T Amp (?V) Site1 Site2 Delta-P (ms) Dist (cm) Austin (m/s) Right Median Anti Sensory (2-3nd Digit) Wrist 3.1 61.3 Wrist 2-3nd Digit 3.1 14.0 45 Wrist 2.9 54.5 Wrist 2-3nd Digit 3.1 14.0 45 Right Radial Anti Sensory (Base 1st Digit) Wrist 2.6 37.1 Wrist Base 1st Digit 2.6 0.0 Right Ulnar Anti Sensory (5th Digit) Wrist 2.7 74.1 Wrist 5th Digit 2.7 14.0 52 Motor Summary Table Stim Site NR Onset (ms) O-P Amp (mV) Site1 Site2 Delta-0 (ms) Dist (cm) Austin (m/s) Right Median Motor (Abd Poll Brev) Wrist 3.1 6.1 Elbow Wrist 4.7 29.0 62 Elbow 7.8 7.8 Right Ulnar Motor (Abd Dig Minimi) Wrist 2.7 10.2 A Elbow Wrist 5.7 29.0 51 A Elbow 8.4 8.9 B Elbow Wrist 3.2 20.0 63 B Elbow 5.9 8.1 F Wave Studies NR F-Lat (ms) L-R F-Lat (ms) Right Median (Mrkrs) (Abd Poll Brev) 25.63 Right Ulnar (Mrkrs) (Abd Dig Min) 24.86 EMG Side Muscle Nerve Root Ins Act Fibs Amp Dur Recrt Comment Right 1stDorInt Ulnar C8-T1 Nml Nml Nml Nml Nml Right Ext Indicis Radial (Post Int) C7-8 Nml Nml Nml Nml Nml Right Ext Digitorum Radial (Post Int) C7-8 Nml Nml Nml Nml Nml Right BrachioRad Radial C5-6 Nml Nml Nml Nml Nml Right PronatorTeres Median C6-7 Nml Nml Nml Nml Nml Right Abd Poll Brev Median C8-T1 Nml Nml Nml Nml Nml Right ABD Dig Min Ulnar C8-T1 Nml Nml Nml Nml Nml MTDD
== END 2022-11-21 10:15 | disposition home or self-care (01) ==
LOC: ANHNEURO 10:15
PROVIDERS: PCP Family Medicine; Visit Provider Orthopaedic Surgery Hand Surgery
DX: G56.22 Lesion of ulnar nerve, left upper limb (principal)
CPT/HCPCS: 95886; 95909

== ENCOUNTER 2023-02-21 08:57 | Emergency (ER) | payer BC, OTHER, SELFPAY ==
--- NOTE | ~2023-02-21 | XR_ITS ---
EXAMINATION: XR foot RT min 3V DATE: 02/21/2023 09:20 INDICATION: Right ankle pain. TECHNIQUE: 4 views of right foot were obtained. COMPARISON: None. FINDINGS: Bone alignment is normal. No fracture. Joint spaces are normal. IMPRESSION: 1. Normal right foot. Reviewed, dictated and finalized at location E. IMPRESSION: 1. Normal right foot.
--- NOTE | ~2023-02-21 | XR_ITS ---
EXAMINATION: XR ankle RT min 3V DATE: 02/21/2023 09:20 INDICATION: Right ankle pain. Injury 3 weeks ago. TECHNIQUE: 4 views of right ankle were obtained. COMPARISON: None. FINDINGS: Bone alignment is normal. No fracture. Joint spaces are normal. IMPRESSION: 1. No fracture. Reviewed, dictated and finalized at location E. IMPRESSION: 1. No fracture.
--- NOTE | 2023-02-21 08:58 | ED.LOWEXIN ---
HPI - Extremity Injury (Lower) General Chief Complaint: Extremity Injury, Lower Stated Complaint: Right Ankle Injury Time Seen by Provider: 02/21/23 09:35 Source: patient and RN notes reviewed Mode of arrival: ambulatory Limitations: no limitations History of Present Illness HPI Narrative: 23-year-old female presents concern for right ankle injury. She reports 3 weeks ago she stepped in a hole and rolled her ankle. Reports since then she has had lateral ankle pain and swelling. Reports she has used Aleve, ice, compression without relief. Reports pain with flexion, extension, weight-bearing. MD complaint: ankle injury Related Data Home Medications Medication Instructions Recorded Confirmed vit no.95-ferrous 1 tablet PO DAILY 05/12/19 11/15/20 fumarate 28 mg-folic acid 800 mcg tablet () duloxetine 30 mg capsule,delayed 30 mg PO BID 08/17/22 08/17/22 release Allergies Allergy/AdvReac Type Severity Reaction Status Date / Time amoxicillin Allergy Mild RASH Verified 06/19/22 08:32 Review of Systems Review of Systems: CONSTITUTIONAL: Denies malaise, chills, sweats, or fever. SKIN: Denies rash or itching, open skin, laceration, abrasion, redness, warmth MUSCULOSKELETAL: Reports right ankle pain and swelling NEUROLOGIC: Denies numbness, weakness All systems reviewed & are unremarkable except as noted in HPI and below PMFSH Past Medical History Medical History Anxiety Asthma Depression Gestational diabetes (normal spontaneous vaginal delivery) PIH ( induced hypertension) Raynaud disease Surgical History Surgical History No pertinent past surgical history Family History Family History Father Diabetes mellitus Social History Social History Smoking status: Never smoker Second hand tobacco smoke exposure: No Substance use: never Gender identity (if verbalized by the patient): Female Spiritual care concerns: No Comments At time of signature, agree with nursing past medical, surgical, social and family history. There is no relevant family history pertinent to the presenting complaint Exam Narrative: GENERAL: Well-appearing, well-nourished, and in no acute distress. HEAD: Normocephalic, atraumatic. EYES: PERRLA, conjunctivae clear NECK: Supple. CHEST: Speaks in full sentences. No respiratory distress. HEART: Regular rate and rhythm. Normal and equal peripheral pulses. EXTREMITIES: Right ankle, foot, digits have grossly normal strength and sensation, normal range of motion. Mild lateral edema, no erythema, ecchymosis. Normal sensation with sensitivity to light touch and pain. Lateral ankle tenderness. No open wounds, no skin tenting, no devitalized tissue or atrophy, no trophic changes, no obvious deformity, alignment normal, nearby joints and structures intact. Distal pulses palpable and equal bilaterally, skin warm, dry, pink. Capillary refill less than 3 seconds. SKIN: Warm, dry, no rash. NEURO: Alert and oriented x3. PSYCH: Normal mood and affect Course Course Emergency Course: Patient is aware of diagnosis, understands and agrees to treatment plan. Anticipatory guidance given. Patient agrees to follow-up as directed and is aware of reasons to seek care at the emergency department. Portions of this record may have been created with voice recognition software Level of Care: Express Care Visit Vital Signs Vital signs: Vital Signs Temperature 98.5 F 02/21/23 09:15 Pulse Rate 110 H 02/21/23 09:15 Respiratory Rate 16 02/21/23 09:15 Blood Pressure 123/90 02/21/23 09:15 Pulse Oximetry 100 02/21/23 09:15 Temperature 98.5 F 02/21/23 09:15 Pulse Rate 110 H 02/21/23 09:15 Respiratory Rate 16 11
[2023-02-21 09:15] VITALS: BP 123/90; PULSE 110; RESP 16; TEMP 36.9; O2SAT 100
== END 2023-02-21 09:54 | disposition home or self-care (01) ==
PROVIDERS: Emergency Provider Nurse Practitioner; PCP Family Medicine
DX: S99.911A Unspecified injury of right ankle, initial encounter (principal); X50.9XXA Other and unspecified overexertion or strenuous movements or postures, initial encounter; J45.909 Unspecified asthma, uncomplicated; I73.00 Raynaud's syndrome without gangrene
CPT/HCPCS: 73610; 73630; 99213; G0463

== ENCOUNTER 2023-04-26 13:38 | Outpatient (CLI) | payer BC, OTHER, SELFPAY ==
--- NOTE | ~2023-04-26 | MR_ITS ---
EXAMINATION: MR lumbar spine wo con DATE: 04/26/2023 14:34 INDICATION: Low back pain. TECHNIQUE: Magnetic resonance imaging (MRI) of the lumbar spine was performed without intravenous con trast. COMPARISON: Lumbar spine radiographs 04/29/2021 FINDINGS: There is 18 degrees levoscoliosis of thoracolumbar spine. Vertebral body heights and interv ertebral disc heights are normal. The distal spinal cord signal intensity is normal. The conus medull sailaja is at T12-L1. The following disc levels are specifically discussed: L1-L2: The disc does not extend beyond the endplate margin. There is mild bilateral facet joint osteo arthritis. There is no neural foraminal stenosis. There is no central canal stenosis. L2-L3: The disc does not extend beyond the endplate margin. There is mild bilateral facet joint osteo arthritis. There is no neural foraminal stenosis. There is no central canal stenosis. L3-L4: The disc does not extend beyond the endplate margin. There is mild bilateral facet joint osteo arthritis. There is no neural foraminal stenosis. There is no central canal stenosis. L4-L5: The disc does not extend beyond the endplate margin. There is mild bilateral facet joint osteo arthritis. There is no neural foraminal stenosis. There is no central canal stenosis. L5-S1: There is a central protrusion. There is mild bilateral facet joint osteoarthritis. There is no neural foraminal stenosis. There is mild central canal stenosis. IMPRESSION: 1. Mild lumbar spondylosis. 2. Thoracolumbar levoscoliosis. Reviewed, dictated and finalized at location E. OLATE FINISHER
--- NOTE | ~2023-04-26 | MR_ITS ---
EXAMINATION: MR cervical spine wo con DATE: 04/26/2023 14:22 INDICATION: Neck pain. TECHNIQUE: Magnetic resonance imaging (MRI) of the cervical spine was performed without intravenous c ontrast. COMPARISON: None FINDINGS: There is mild kyphosis of cervical spine. Vertebral heights and intervertebral disc heights are normal. The spinal cord signal intensity is normal. The following disc levels are specifically d iscussed: C2-C3: The disc does not extend beyond the endplate margin. There is no uncovertebral joint osteoarth ritis. There is no facet joint osteoarthritis. There is no neural foraminal stenosis. There is no debbie tral canal stenosis. C3-C4: The disc does not extend beyond the endplate margin. There is no uncovertebral joint osteoarth ritis. There is mild bilateral facet joint osteoarthritis. There is no neural foraminal stenosis. The re is no central canal stenosis. C4-C5: The disc does not extend beyond the endplate margin. There is no uncovertebral joint osteoarth ritis. There is no facet joint osteoarthritis. There is no neural foraminal stenosis. There is no debbie tral canal stenosis. C5-C6: The disc does not extend beyond the endplate margin. There is no uncovertebral joint osteoarth ritis. There is no facet joint osteoarthritis. There is no neural foraminal stenosis. There is no debbie tral canal stenosis. C6-C7: The disc does not extend beyond the endplate margin. There is no uncovertebral joint osteoarth ritis. There is mild bilateral facet joint osteoarthritis. There is no neural foraminal stenosis. The re is no central canal stenosis. C7-T1: The disc does not extend beyond the endplate margin. There is no uncovertebral joint osteoarth ritis. There is mild bilateral facet joint osteoarthritis. There is no neural foraminal stenosis. The re is no central canal stenosis. IMPRESSION: 1. Mild cervical facet joint osteoarthritis. Reviewed, dictated and finalized at location E. TY DIRECTOR
== END 2023-04-26 13:39 | disposition home or self-care (01) ==
PROVIDERS: PCP Family Medicine; Visit Provider Family Medicine
DX: M43.06 Spondylolysis, lumbar region (principal); M47.892 Other spondylosis, cervical region; M41.85 Other forms of scoliosis, thoracolumbar region
CPT/HCPCS: 72141; 72148

== ENCOUNTER 2023-06-17 06:06 | Emergency (ER) | payer BC, OTHER, SELFPAY ==
--- NOTE | ~2023-06-17 | XR_ITS ---
XR ankle RT min 3V 06/17/2023 07:46 INDICATION: Right ankle pain PROCEDURE: 4 views right ankle COMPARISON: 02/21/2023 FINDINGS: Fracture, dislocation or subluxation is not identified. The soft tissues appear within norm al limits. No foreign bodies are identified. IMPRESSION: 1: NO ACUTE BONE OR JOINT ABNORMALITY IDENTIFIED. Reviewed, dictated and finalized at location A. ARCH AND DEVELOPMENT DIRECTOR
[2023-06-17 06:07] VITALS: BP 137/73; PULSE 129; RESP 18; TEMP 36.5; O2SAT 100
--- NOTE | 2023-06-17 08:03 | ED.GENADULT ---
HPI - General Adult General Chief complaint: Extremity Injury, Lower Stated complaint: fall Time Seen by Provider: 06/17/23 07:37 History of Present Illness HPI narrative: 23-year-old female presenting to the emergency department for evaluation of right ankle pain. Patient reports she rolled her ankle getting off of the couch. Patient denies striking head denies any loss of consciousness. Patient does report pain at her right lateral ankle. Related Data Home Medications Medication Instructions Recorded Confirmed duloxetine 30 mg capsule,delayed 60 mg PO BID 08/17/22 03/29/23 release cyclobenzaprine 10 mg tablet 20 mg PO TID 03/29/23 03/29/23 Allergies Allergy/AdvReac Type Severity Reaction Status Date / Time amoxicillin Allergy Mild RASH Verified 06/17/23 07:33 Review of Systems Review of Systems: All systems reviewed & are unremarkable except as noted in HPI and below PMFSH Past Medical History Medical History Anxiety Asthma Depression Gestational diabetes (normal spontaneous vaginal delivery) PIH ( induced hypertension) Raynaud disease Surgical History Surgical History History of tonsillectomy Family History Family History Father Diabetes mellitus Social History Social History (Updated 03/29/23 @ 12:33 by Meryl Camacho CMA) Smoking status: Never smoker Second hand tobacco smoke exposure: No Alcohol intake: current Substance use: current Substance use type: marijuana Lack of Transportation: No Lack of Food: Often True Current Housing: I Have Housing Concerned About Future Housing: No Difficulty Paying Gas/Electric Bills: YES Difficulty Paying for Meds: No Currently Unemployed: YES Education: High School Diploma/GED Occupation/Education: unemployed Gender identity (if verbalized by the patient): Female Spiritual care concerns: No Exam Narrative: APPEARANCE: Well appearing, no pain, no distress, well-nourished. HEAD: normocephalic, atraumatic. EYES: PERRLA/EOMI, conjunctivae clear. NOSE: Normal no drainage NECK: Supple. No adenopathy, no masses. RESPIRATORY: Airway patent, respirations nonlabored. Clear to auscultation bilaterally, no rales, rhonchi, wheezing. CARDIOVASCULAR: Regular rate and rhythm without murmurs rubs or gallops. ABDOMINAL: Soft, nontender, nondistended, normal bowel sounds MUSCULOSKELETAL: Moves all extremities. Right lateral ankle pain, neurovascularly intact, no deformity NEURO: Alert. Cranial nerves II through XII intact. Grossly intact SKIN: Warm, dry. Normal Color Course Course Emergency Course: 23-year-old female present to the ED with ankle pain. Patient was treated for an ankle sprain with Nathanael wrap and crutches. Patient was encouraged of close follow-up with her primary care physician. Vital Signs Vital signs: Vital Signs Temperature 97.7 F 06/17/23 06:07 Pulse Rate 129 H 06/17/23 06:07 Respiratory Rate 18 06/17/23 06:07 Blood Pressure 137/73 06/17/23 06:07 Pulse Oximetry 100 06/17/23 06:07 Oxygen Delivery Room Air 06/17/23 06:07 Temperature 97.7 F 06/17/23 06:07 Pulse Rate 129 H 06/17/23 06:07 Respiratory Rate 18 06/17/23 06:07 Blood Pressure 137/73 06/17/23 06:07 Pulse Oximetry 100 06/17/23 06:07 Oxygen Delivery Room Air 06/17/23 06:07 Medical Decision Making MDM Narrative Medical decision making narrative: 23-year-old female presenting to the ED for evaluation of right ankle pain after rolling her ankle getting the couch. Patient had no other pain or injury. Patient had no tenderness to proximal tib-fib on the affected leg. No tenderness or deformity to foot. X-ray showed no acute fracture dislocation. Patient was treated as a ligament strain. Patient was prov
== END 2023-06-17 08:55 | disposition home or self-care (01) ==
PROVIDERS: Emergency Provider Emergency Medicine; PCP Family Medicine
DX: S93.401A Sprain of unspecified ligament of right ankle, initial encounter (principal); S96.911A Strain of unspecified muscle and tendon at ankle and foot level, right foot, initial encounter; J45.909 Unspecified asthma, uncomplicated; I73.00 Raynaud's syndrome without gangrene; W18.39XA Other fall on same level, initial encounter; X50.9XXA Other and unspecified overexertion or strenuous movements or postures, initial encounter
CPT/HCPCS: 73610; 99283

== ENCOUNTER 2023-09-20 12:35 | Outpatient (CLI) | payer BC, OTHER, SELFPAY ==
--- NOTE | ~2023-09-20 | US_ITS ---
US breast LT limited INDICATION: Palpable left breast lump TECHNIQUE: Dedicated Limited left breast ultrasound COMPARISON: No prior studies for comparison. FINDINGS: The left breast is composed of normal heterogeneous echotexture without focal solid or cyst ic mass. IMPRESSION: 1: Normal left breast ultrasound. BI-RADS CATEGORY 1 - NEGATIVE Reviewed, dictated and finalized at location B.
== END 2023-09-20 12:36 | disposition home or self-care (01) ==
PROVIDERS: PCP Family Medicine; Visit Provider Nurse Practitioner
DX: N63.20 Unspecified lump in the left breast, unspecified quadrant (principal)
CPT/HCPCS: 76642

== ENCOUNTER 2023-11-21 15:34 | Emergency (ER) | payer BC, SELFPAY ==
--- NOTE | ~2023-11-21 | XR_ITS ---
EXAMINATION: XR chest 2V DATE: 11/21/2023 16:15 INDICATION: Productive cough TECHNIQUE: PA and lateral views of the chest were obtained. COMPARISON: Chest radiograph dated 09/09/2013 FINDINGS: The lungs are clear with no focal airspace opacities, pulmonary edema, pleural effusion or pneumothor ax. The cardiomediastinal silhouette is normal. Mild thoracic dextrocurvature and mild thoracolumbar levocurvature. IMPRESSION: 1. No acute cardiopulmonary disease. Reviewed, dictated and finalized at location A.
[2023-11-21 15:48] VITALS: BP 134/79; PULSE 95; RESP 16; TEMP 37.2; O2SAT 99
--- NOTE | 2023-11-21 16:10 | ED.GENADULT ---
HPI - General Adult General Chief complaint: Upper Respiratory Infection Stated complaint: recurring cough,wheezing,asthmatic Source: patient Mode of arrival: ambulatory Limitations: no limitations History of Present Illness HPI narrative: Patient presents for evaluation of respiratory symptoms. she reports a chronic cough for the last 6 months. Cough is productive of green sputum. She attributes this to smoking marijuana. She has underlying asthma She noticed wheezing this morning. She believes this is a result of a sinus infection that she had about one week ago. Her sinus congestion has resolved. She does report some shortness of breath, worse with exertion. She denies any fever, chills, sore throat or otalgia. No recent sick contacts to her knowledge. Related Data Home Medications Medication Instructions Recorded Confirmed cyclobenzaprine 10 mg tablet 20 mg PO TID 03/29/23 11/21/23 aripiprazole 5 mg tablet 5 mg PO DAILY 11/13/23 11/21/23 atomoxetine 60 mg capsule 60 mg PO DAILY 11/13/23 11/21/23 bupropion HCl 150 mg tablet,12 hr 150 mg PO DAILY 11/13/23 11/21/23 sustained-release (Wellbutrin SR) drospirenone (contraceptive) 4 mg 1 tablet PO DAILY 11/13/23 11/21/23 (28) tablet (Slynd) duloxetine 30 mg capsule,delayed 60 mg PO DAILY 11/13/23 11/21/23 release propranolol 10 mg tablet 10 mg PO ONCE 11/13/23 11/21/23 trazodone 50 mg tablet 50 mg PO DAILY 11/13/23 11/21/23 albuterol 90 mcg/actuation aerosol 90 mcg inhalation QID PRN sob 11/21/23 11/21/23 inhaler Allergies Allergy/AdvReac Type Severity Reaction Status Date / Time amoxicillin Allergy Mild RASH Verified 11/21/23 15:41 Review of Systems Review of Systems: CONSTITUTIONAL: Denies fever, chills, or sweats. EYES: Denies visual changes, redness, or discharge. ENT: Denies rhinorrhea, congestion, sore throat, or otalgia. CARDIOVASCULAR: Denies chest pain, palpitations, or edema. RESPIRATORY:Reports productive cough of green sputum, wheezing, shortness of breath which is worse with exertion. GASTROINTESTINAL: Denies abdominal pain, nausea, vomiting, or diarrhea. GENITOURINARY: Denies dysuria or hematuria. SKIN: Denies rash or itching. MUSCULOSKELETAL: Denies back pain, joint pain, or myalgia. NEUROLOGIC: Denies headache, numbness, dizziness, or weakness. PSYCHIATRIC: Denies anxiety or depression. [facility] Past Medical History Medical History Anxiety Asthma Depression Gestational diabetes (normal spontaneous vaginal delivery) PIH ( induced hypertension) Raynaud disease Surgical History Surgical History History of tonsillectomy Family History Family History Father Diabetes mellitus Social History Social History Second hand tobacco smoke exposure: No Alcohol intake: current Substance use: current Substance use type: marijuana Lack of Transportation: No Lack of Food: Often True Current Housing: I Have Housing Concerned About Future Housing: No Difficulty Paying Gas/Electric Bills: YES Difficulty Paying for Meds: No Currently Unemployed: YES Education: High School Diploma/GED Living arrangements: with family Occupation/Education: unemployed Gender identity (if verbalized by the patient): Female Spiritual care concerns: No Exam Narrative: GENERAL: Well-appearing, well-nourished, and in no acute distress. HEAD: Normocephalic, atraumatic. EYES: PERRLA and EOMI. ENT: Nares clear, no rhinorrhea or epistaxis. Mucous membranes moist. Oropharynx without tonsillar hypertrophy exudate or other lesions. Bilateral TMs pearly blanchard nonbulging NECK: Supple. No adenopathy or masses. No carotid bruits or JVD CHEST: Clear to auscultation. No respiratory di
== END 2023-11-21 16:53 | disposition home or self-care (01) ==
PROVIDERS: Emergency Provider Nurse Practitioner
DX: J45.909 Unspecified asthma, uncomplicated (principal); F12.90 Cannabis use, unspecified, uncomplicated; F41.9 Anxiety disorder, unspecified; F32.A Depression, unspecified; I73.00 Raynaud's syndrome without gangrene
CPT/HCPCS: 71046; 99213; G0463

== ENCOUNTER 2025-01-06 11:31 | Outpatient (CLI) | payer OTHER, SELFPAY ==
--- NOTE | ~2025-01-06 | US_ITS ---
Clinical history:Focal pain in the left breast at the 3:00 position in an area of palpable concern EXAM:Ultrasound breast left limited TECHNIQUE:Multiple static grayscale images were obtained of the area of pain and palpable concern in the left breast. Comparisons:09/20/2023 FINDINGS: No cystic or solid mass identified in the area of concern. IMPRESSION: 1. No sonographic abnormality in the area of concern in the left breast. BI-RADS1: Negative Reviewed, dictated and finalized at location Q.
--- OUTSIDE RECORDS SUMMARY | 2025-01-06 13:33 | XMS_ITS | Patient Health Record ---
Author Organization [facility] As Constant Contact Address [address] [place] [address] Care Team Providers Care Lastex Thread Winder Name Role Phone Salma Vicente Unavailable [phone] Reason For Referral No Information Medications Medication SIG (Take, Route, Frequency, Duration) Notes Start Date End Date Status Ergocalciferol 1.25 MG (66796 UT) Capsule Oral 08/17/2023 Active DULoxetine HCl 60 MG Capsule Delayed Release Particles Oral 08/17/2023 Active buPROPion HCl ER (XL) 150 MG Tablet Extended Release 24 Hour Oral 08/17/2023 Active hydrOXYzine Pamoate 25 MG Capsule Oral 08/17/2023 Active Strattera 60 MG Capsule TAKE 1 CAPSULE B Y MOUTH EVERY DAY; Duration: 90 Active DULoxetine HCl 30 MG Capsule Delayed Release Particles Oral 08/17/2023 Active Cyclobenzaprine HCl 10 MG Tablet Oral 08/17/2023 Active predniSONE 10 MG Tablet Oral 08/17/2023 Active SLYND 4 MG (28) TABLET *Reorder from [employer] for eRx and Interaction Alerts* 08/17/2023 Active Propranolol HCl 10 MG Tablet Oral 08/17/2023 Active Social History Social History Additional Details Category Social Info Options Details Migrated Social History Migrated Social History Alcohol Intake: Occasional 04/24/2023,Tobacco Years: Never smoker 02/08/2023 Plan Of Treatment No Information Insurance Providers Payer Name Payer Address Payer Phone Subscriber Number Group Number Insured Name Patient Relationship to Insured Coverage Start Date Coverage End Date [facility] Ppo [address] [place] [address] [id number] [employer] ALYSSA WOODSON Self - patient is the insured [facility] Plan [facility] On Or After 20 [address] [place] [address] [id number] [employer] ONALYSSA Self - patient is the insured Medical (General) History Surgical History Surgery Date(Month/Year) Extraction of wisdom tooth ([id number]) Procedure on tendon ([id number]) right wr ist 05/08/2023 Tonsilectomy/adenoids 07/23/2015 Other 07/23/2015
--- OUTSIDE RECORDS SUMMARY | 2025-01-06 13:33 | XMS_ITS | Clinical Summary ---
Author Organization [facility] [employer] Address [address] [place] [address] Care Team Providers Care Slicing Machine Feeder Name Role Phone Yolanda Mckeon MD Primary Care Provider Source Comments [facility] [employer],non-owned Affiliates and Associated Physician Practices is amultiple site organization consisting of ambulatory clinics and hospital sitesin [place], [place], [place] and [place]. This disclosure is being madepursuant to the Care Everywhere program and may not contain all information available regarding this patient. Last updated 18.[facility] [employer] Allergies Active Allergy Reactions Criticality Noted Date Comments Amoxicillin Urticaria,Other Medium 01/31/2017 PCN gives HIVES -at 1 years of age. Medications * Be aware that medications may not be up to date on this document. Alwaysverify current medications with the patient. ALBUTEROL SULFATE HFA IN Inhale 2 puffs by mouth Active propranolol (Inderal) 10 MG tablet 4 Active hydrOXYzine pamoate (Vistaril) 25 MG capsule 4 Active atomoxetine (Strattera) 80 MG capsule Take 1 (one) capsule by mouth every morning Active buPROPion XL 24hr (Wellbutrin-XL) 150 MG tablet Take 1 (one) tablet by mouth at bedtime Active Slynd 4 MG TABS tablet Take 1 (one) tablet by mouth once daily 4 Active cyclobenzaprine (Flexeril) 10 MG tabletIndicatio ns:Fibromyalgia Syndrome Take 1 (one) tablet by mouth at bedtime Reasons: Fibromyalgia Syndrome 90 tablet 3 4 Active DULoxetine (Cymbalta) 60 MG capsuleIndicati ons:Fibromyalgi a Syndrome,Major Depressive Disorder Take 1 (one) capsule by mouth at bedtime As issued by psychiatry. 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 Thyroid antibody positive (TPO) 12/20/2021 Overview (12/20/2021): Probable at risk for the future devlopment of Nikia's thyroiditis and resultant hypothyroidism. Advise annual TSH screening. Primary fibromyalgia syndrome 10/12/2021 Overview (10/12/2021): Strongly suspected component of a fibromyalgia syndrome contributing to symptoms but in itself is not mutually exclusive of a underlying systemic CTD e.g. SLE Non-restorative sleep 10/12/2021 Overview (10/12/2021): Describes longstanding non restorative sleep quality with chronic fatigue back in commonly be seen in patients with a fibromyalgia syndrome. Try gabapentin HS Vitamin D deficiency 10/12/2021 Overview (10/12/2021): Reduced at 14 noted 07/25/2018. Prior repletion Rx? No follow up testing available. Check w/ PCP but if deficiency not confirmed corrected then recheck lab level. Asthma 05/17/2020 Raynaud's disease without gangrene 09/12/2017 Fatigue 09/12/2017 Anxiety and depression 09/12/2017 Resolved Problems Problem Noted Date Diagnosed Date Resolved Date Abnormal immunological findi ng in serum (JAIDEN+, borderline low positive anti-chromatin Ab, RNA Polymerase III Ab, low C4) 10/12/202112/20 Overview (10/12/2021): Age 15, severe fatigue (in bed 20/24 hrs),anorexia,wt loss (145-105 in 1 mo),diffuse pain (joints/soft tissue),RP,alopecia,dry eyes/mouth, photosensitivity. Short interval between pregn ancies affecting , antepartum 05/17/2020 10/12/2021 Overview (05/17/2020): : 05/18/19 Hx of preeclampsia, prior pr egnancy, currently 05/17/2020 10/12/2021 Chronic pain 05/17/2020 12/20/2021 Supervision of high-risk pre gnancy of young multigravida 05/17/2020 10/12/2021 Overview (05/17/2020): Dating: requested summary: requested Connective tissue disease 09/12/2017 Arthritis 09/12/2017 10/12/2021 Weight loss 09/12/2017 05/17/2020 JAIDEN positive 09/12/2017 01/31/2024 Autoantibody titer positive 09/12/2017 10/12/2021 Muscle spasm 09/12/2017 05/17/2020 Immunizations Immunization Administration Dates Next Due INFLUENZA VACCINE, QUADR. (F LUZONE; FLULAVAL; FLUARIX; AFLURIA QUADRIVALENT; 6MO+), 0.5 ML (IIV4) 01/07/2018 Family History Medical History Relation Name Comments Anxiety Disorder Father Depression Father Lupus Maternal Grandmother Anxiety Disorder Mother Depression Mother Relation Name Status Comments Father Alive Maternal Grandmother Alive Mother Alive Social History Tobacco Use Types Packs/Day Years Used Date Smoking Tobacco: Never Smokeless Tobacco: Never Tobacco Cessation:Counseling Given: Not Answered Alcohol Use Standard Drinks/Week Comments Not Currently 0 (1 standard drink = 0.6 oz pur e alcohol) Comments No Sex and Gender Information Value Date Recorded Sex Assigned at Not on file Legal Sex Female 4:21 PM MEAT SMOKER Gender Identity Not on file Sexual Orientation Not on file Last Filed Vital Signs Vital Sign Reading Time Taken Comments Blood Pressure 110/70 01/31/2024 1:49 PM CDT Pulse 126 01/31/2024 1:49 PM CDT Temperature 36.7 C (98 F) 01/31/2024 1:49 PM CDT Respiratory Rate 16 01/31/2024 1:49 PM CDT Oxygen Saturation 99% 01/31/2024 1:49 PM CDT Inhaled Oxygen Concentration - - Weight 71.7 kg (158 lb) 01/31/2024 1:49 PM CDT Height 172.7 cm (5' 8) 01/31/2024 1:49 PM CDT Body Mass Index 24.02 01/31/2024 1:49 PM CDT Plan of Treatment Upcoming Encounters Date Type Department Care Team (Late st Contact Info) Description 01/29/2025 1:20 PM CDT Office Visit [facility] - Rheumatology [address], [address] [place] [address] Demond Ty DO [address] [place] [address] Health Maintenance Due Date Last Done Comments HPV VACCINE (1 - 3-dose series) 2013 DTAP/TDAP/TD VACCINES (1 - Tdap) 2017 HEPATITIS B VACCINE (1 of 3 - 19+ 3-dose series) 2017 PNEUMOCOCCAL VACCINE (1 of 2 - PCV) 2017 DEPRESSION SCREENING 04/23/2024 COVID-19 VACCINE (1 - 2023-2 5 season) 2024 INFLUENZA VACCINE (#1) 2024 8, 03/20/2017, 02/23/2015 PAP SMEAR 08/27/2026 08/28/2023 ZOSTER VACCINE (1 of 2) 02/22/2048 HEPATITIS C SCREENING Completed 02/05/2017 HIV SCREENING Completed 09/07/2020, 02/05/2017 HIB VACCINE Aged Out No longer eligi ble based on patient's age to complete this topic MENINGOCOCCAL (Group B) VACCINE SHARED DECISION-MAKING Aged Out No longer eligible based on patient's age to complete this topic MENINGOCOCCAL GROUPS A/C/Y/W VACCINE Aged Out No longer eligible b ased on patient's age to complete this topic Procedures Procedure Name Priority Date/Time Associated Diagnosis Comments HEPATITIS C AB W/RFLX TO HCV RNA QN PCR Routine 02/05/2017 1:02 PM CDT HIV-1 HIV-2 ANTIGEN/ANTIBODY Routine 02/05/2017 1:02 PM CDT from Last 3 Months or Most Recently Relevant to Health Maintenance Results * HIV-1 HIV-2 ANTIGEN/ANTIBODY (02/05/2017 1:02 PM CDT) HIV Antigen/Antibody 4th Generation NON-REACT TASNEEM NON-REACT TASNEEM [facility]) Comment: HIV-1 antigen and HIV-1/HIV-2 antibodies were not detected. There is no laboratory evidence of HIV infection. PLEASE NOTE: This information has been disclosed to you from records whose confidentiality may be protected by state law. If your state requires such protection, then the state law prohibits you from making any further disclosure of the information without the specific written consent of the person to whom it pertains, or as otherwise permitted by law. A general authorization for the release of medical or other information is NOT sufficient for this purpose. For additional information please refer to http://education.AppBrick/faq/FCP518 (This link is being provided for informational/ educational purposes only.) The performance of this assay has not been clinically validated in patients less than 2 years old. Test Performed at: [facility] [address] [place] [address] BECKY OGLESBY DO,MPH 02/05/2017 1:02 PM CDT 02/05/2017 1:03 PM CDT Zeeshan Canales DO LAB - HEMATOLOGY ORD ERABLES Edited Result - Final [facility] ([facility]) [address] [place], [place] [id number] [place] [address] * HEPATITIS C AB W/RFLX TO HCV RNA QN PCR (02/05/2017 1:02 PM CDT) Hepatitis C Antibody NON-REACTI VE NON-REACT TASNEEM [facility]) Signal/Cutoff 0.11 <1.00 [facility] ([facility]) Comment: Test Performed at: [facility] [address] [facility] [place] [address] BECKY OGLESBY DO,MPH 02/05/2017 1:02 PM CDT 02/05/2017 1:03 PM CDT Zeeshan Canales DO LAB - CHEMISTRY COURTNEY DESAI Edited Result - Final [facility] ([facility]) [address] from Last 3 Months or Most Recently Relevant to Health Maintenance Insurance [facility] MEDICAID * Guarantor: ALYSSA TUCKER Account Type Relation to Patient Date of Phone Billing Address Personal/Family [address] [place] [address] Care Teams Slicing Machine Feeder Relationship Specialty Start Date End Date Yolanda Mckeon MD [address] [place] [address] [place] [address] PCP - General 09/07/17
--- OUTSIDE RECORDS SUMMARY | 2025-01-06 13:33 | XMS_ITS | Clinical Summary ---
Author Organization [facility] - 2022 Address [address] [place] [address] Phone Care Team Providers Care Bowling Alley Mechanic Name Role Phone Unavailable Primary Care Provider Unavailabl e Social History Tobacco Use Types Packs/Day Years Used Date Smoking Tobacco: Never Assessed Comments Unknown Sex and Gender Information Value Date Recorded Sex Assigned at Not on file Legal Sex Female 10:15 AM CDT Gender Identity Not on file Sexual Orientation Not on file Plan of Treatment Health Maintenance Due Date Last Done Comments HPV VACCINES (1 - 3-dose series) 2013 DTAP/TDAP/TD VACCINES (1 - Tdap) 2017 HEPATITIS B VACCINES (1 of 3 - 19+ 3-dose series) 2017 CERVICAL CANCER SCREENING 2019 HPV/Cotest (21-29) 2019 PAP SMEAR 2019 INFLUENZA VACCINE (#1) 2024 8, 03/20/2017, 02/10/2016, Additional history exists Insurance [facility] MEDICAID Member Subscriber Plan / Payer (Ef fective 2020-Present) Name:Karin Rajput Relation to Subscriber:Self Name:Karin Rajput Payer ID:[id number] (NAIC) Group ID:Not on file Type:PPO Address: [place] [phone] [facility]
--- OUTSIDE RECORDS SUMMARY | 2025-01-06 13:33 | XMS_ITS | Clinical Summary ---
Author Organization [facility] Address [address] [place] [address] Care Team Providers Care Nuclear Power Reactor Operator Name Role Phone Yolanda Mckeon MD Primary Care Provider + Allergies Active Allergy Reactions Criticality Noted Date Comments Amoxicillin Hives Medium 05/06/2020 Medications No known medications Active Problems No known active problems Surgical History Surgery Date Site/Laterality Comments TONSILLECTOMY 04/23/2015 - 04/22/2016 Social History Tobacco Use Types Packs/Day Years Used Date Smoking Tobacco: Never Smokeless Tobacco: Never Alcohol Use Standard Drinks/Week Comments Yes 0 (1 standard drink = 0.6 oz pur e alcohol) Personal Safety Answer Date Recorded Getting School Help Needed Not on file 07/06 Comments Unknown Sex and Gender Information Value Date Recorded Sex Assigned at Not on file Legal Sex Female 11:56 AM FURNITURE UPHOLSTERER Gender Identity Not on file Sexual Orientation Not on file Obstetrics History Last Filed Vital Signs Vital Sign Reading Time Taken Comments Blood Pressure - - Pulse - - Temperature 36.7 C (98 F) 05/06/2020 8:13 AM FURNITURE UPHOLSTERER Respiratory Rate - - Oxygen Saturation - - Inhaled Oxygen Concentration - - Weight 54.4 kg (120 lb) 05/06/2020 8:13 AM FURNITURE UPHOLSTERER Height 172.7 cm (5' 8) 05/06/2020 8:13 AM FURNITURE UPHOLSTERER Body Mass Index 18.25 05/06/2020 8:13 AM FURNITURE UPHOLSTERER Plan of Treatment Not on file Insurance [employer] [facility] [id number] Care Teams Nuclear Power Reactor Operator Relationship Specialty Start Date End Date Yolanda Mckeon MD [address] [place] [address] [place] [address] PCP - General Family Medicine 02/16/20
== END 2025-01-06 11:32 | disposition home or self-care (01) ==
LOC: ANHFOHIMG 11:33
PROVIDERS: Visit Provider Nurse Practitioner
DX: N63.20 Unspecified lump in the left breast, unspecified quadrant (principal)
CPT/HCPCS: 76642